=== PATIENT | male | born 1935 | race Caucasian/White ===

== ENCOUNTER 2016-06-17 10:32 | Inpatient (IN) | payer MEDICARE, MEDICAID ==
[~2016-06-17] VITALS: Ht 185.4 cm; Wt 110.6 kg
--- NOTE | ~2016-06-17 | ER ---
PATIENT'S NAME: LEONEL ALONSO [facility] AGE: 81 Y [address] ROOM: [address] [place], [place] [address] LOCATION: GPCU ADMIT DATE: 06/17/2016 ER/Outpatient Report DISCHARGE DATE: FAMILY PHYSICIAN: Bernabe Montero MD ATTENDING PHYSICIAN: DONALD CORONA V TIME OF ARRIVAL: 1032 hours. TIME OF EVALUATION: 1035 hours. CHIEF COMPLAINT: Not feeling well. HISTORY OF PRESENT ILLNESS: The patient is a 81-year-old male who presents to the emergency department today with a chief complaint of not feeling well. He reports that he has had a fever that developed this morning. He has had some lower abdominal pain as well. It all started about 3:00 a.m.. He is having a dry cough as well. Does report some nausea, vomiting, as well as some chills. Denies any diarrhea or constipation. The patient does report that he self caths. He did present to dialysis today; however, with the elevated temperature, they did not dialyze him. PAST MEDICAL HISTORY: End-stage renal disease, on hemodialysis Wednesday, Wednesday, and Wednesday; hypertension; atherosclerotic ischemic heart disease; coronary artery disease; obstructive sleep apnea, using CPAP; slg-dwbcecu-adxqeqdjm diabetes mellitus, type 2; tachy-jh syndrome; chronic renal failure; gastroesophageal reflex; benign prostatic hypertrophy; dyslipidemia; remote tobacco abuse; squamous cell cancer; sick sinus syndrome; anemia of chronic disease. PAST SURGICAL HISTORY: AV fistula placement in the left arm, cholecystectomy, pacemaker placement. SOCIAL HISTORY: The patient denies any tobacco use. Reports occasional alcohol use. Denies illicit drug use. ALLERGIES: NO KNOWN DRUG ALLERGIES. MEDICATIONS: Please see list. PATIENT'S NAME: LEONEL ALONSO [facility] AGE: 81 Y [address] ROOM: [address] [address] LOCATION: GPCU ADMIT DATE: 06/17/2016 ER/Outpatient Report DISCHARGE DATE: FAMILY PHYSICIAN: Bernabe Montero MD ATTENDING PHYSICIAN: DONALD CORONA V PRIMARY CARE DOCTOR: Bernabe Montero MD. REVIEW OF SYSTEMS: All systems are reviewed by myself and negative with the exception of those discussed in HPI and past medical history. PHYSICAL EXAMINATION: VITAL SIGNS: Weight 106 kg, blood pressure 186/93, pulse 113, respiratory rate 20, temperature 101.7, oxygen saturation 97% on room air. GENERAL: The patient is a 81-year-old male, appears his stated age, in no acute distress. HEENT: Head normocephalic atraumatic. Pupils are equal, round, and reactive to light and accommodation. Extraocular motions are intact. Nares are patent bilaterally. TMs are clear. Oropharynx is clear. NECK: Supple. There is no nuchal rigidity. CARDIOVASCULAR: Tachycardic. No murmurs, rubs, or gallops. LUNGS: Clear to auscultation bilaterally. No wheezes, rales, or rhonchi. ABDOMEN: Soft. Mild bilateral lower abdominal tenderness to palpation. He has no rebound, rigidity, or guarding. Positive bowel sounds. MUSCULOSKELETAL: The patient moves all 4 extremities. NEUROLOGICAL: GCS 15. Alert and oriented x4. SKIN: Warm and dry. LABS AND X-RAYS: Labs and x-rays are obtained. CBC: White blood cell count of 3.7, and platelets is 65, otherwise, unremarkable. Coags are unremarkable. EKG is obtained, interpreted by myself shows a paced rhythm with a rate of 111, normal axis, normal interval. Sgarbossa criteria are negative. Lactate is 2.1. CMP unremarkable except for BUN 40, creatinine 7.9, glucose 150. ALT is normal. Lipase is normal. CK-MB and CK are normal. Troponin 0.043. Procalcitonin is elevated at 0.59. Influenza A and B are negative. CT scan of the abdomen and pelvis is obtained. I discussed results with the radiologist. It does show atrophic kidneys with bilateral renal cyst. There is a small amount of free fluid within the right lower quadrant and pelvis. There is circumferential bladder wall thickening of uncertain etiology. He has scattered colon diverticula without evidence of diverticulitis. Urinalysis shows 25 leuk esterase, 100 protein, 25 blood, 10-20 wbc's and rbc's, otherwise unremarkable. IMPRESSION: 1. Complicated urinary tract infection with the self-catheterizations at home. 2. Sepsis due to #1. PATIENT'S NAME: LEONEL ALONSO [facility] AGE: 81 Y [address] ROOM: [place] [id number] [facility] ADMIT DATE: 06/17/2016 ER/Outpatient Report DISCHARGE DATE: FAMILY PHYSICIAN: Bernabe Montero MD ATTENDING PHYSICIAN: DONALD CORONA V 3. End-stage renal disease, on hemodialysis. 4. Thrombocytopenia, progressively down trending on labs. 5. Initial visit. EMERGENCY DEPARTMENT COURSE: The patient brought back to the examination room. Seen evaluated by myself. IV is established. Laboratory analysis and imaging are obtained as described above. The patient is given Tylenol orally. He is given Zosyn 2.25 g IV. The patient has not had his dialysis at this time. I will hold off on the fluids until evaluation by Nephrology. I did discuss the case with Dr. Montero. He has seen and evaluated the patient down here in the emergency department. I have also discussed the case with EMILY Torres. I have discussed the case with Dr. Corona with the Hospitalist Service. The patient will be admitted under the care of the Hospitalist Service in conjunction with Nephrology in stable condition. DO JYOTI DEE/katina /[id number] d: 06/17/16 1438 t: 06/19/16 0822, OUTPATIENT REPORT
--- NOTE | ~2016-06-17 | HP ---
PATIENT'S NAME: LEONEL ALONSO [facility] AGE: 81 Y [address] ROOM: [place] [address] LOCATION: GPCU ADMIT DATE: 06/17/2016 History & Physical DISCHARGE DATE: FAMILY PHYSICIAN: Bernabe Montero MD ATTENDING PHYSICIAN: DONALD CORONA V DATE OF SERVICE: CHIEF COMPLAINT: Fever. HISTORY OF PRESENT ILLNESS: The patient is a 81-year-old male with past medical history most significant for end-stage renal disease, on hemodialysis. The patient was feeling well until yesterday evening when he developed fatigue. Subsequently, the patient developed shaking chills and rigors this morning. He came to the ER and was found to have a fever of 101.7. Remainder of the workup in the ER was unremarkable, which included chest x-ray, CT of abdomen and pelvis, as well as labs. The patient does not endorse any chest pain, shortness of breath, productive cough, nausea, vomiting, or diarrhea associated with these symptoms. REVIEW OF SYSTEMS: All systems have been reviewed and negative aside from pertinent positives mentioned above. PAST MEDICAL HISTORY: Significant for; 1. Placement of an AICD. 2. 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 3. Essential hypertension. 4. Benign prostatic hyperplasia, requiring self catheterization. The patient is scheduled for a TURP in several weeks. 5. Diabetes. 6. Hypothyroidism. CURRENT MEDICATIONS: 1. Allopurinol. 2. Amlodipine. 3. Carvedilol. 4. Levothyroxine. The remainder of medications is being compiled. PATIENT'S NAME: LEONEL ALONSO [facility] AGE: 81 Y [address] ROOM: [place] [address] LOCATION: GPCU ADMIT DATE: 06/17/2016 History & Physical DISCHARGE DATE: FAMILY PHYSICIAN: Bernabe Montero MD ATTENDING PHYSICIAN: DONALD CORONA V SOCIAL HISTORY: Negative for any toxic habits. FAMILY HISTORY: Reviewed and is noncontributory due to the patient's advanced age and normal medical problems. PHYSICAL EXAMINATION: VITAL SIGNS: Upon my visit in dialysis; his blood pressure is 180/100, heart rate is 110s, temperature 101.7, respirations 16, and saturating 96% on room air. GENERAL: Appears as a well-developed, well-nourished, elderly overweight male, in no acute distress, on dialysis, eating sandwich. NEUROLOGIC: Nonfocal. EYES: Pupils are equal and reactive to light. LYMPHATIC: Shows no cervical lymphadenopathy. ENDOCRINE: Shows no thyromegaly. LUNGS: Clear to auscultation bilaterally. HEART: Heart rate is regular with no appreciable murmurs, gallops, or rubs. GI: Abdomen is soft, nontender, and nondistended. : Reveals no costovertebral angle tenderness. VASCULAR: Reveals 2+ pedal pulses and no lower extremity edema. MUSCULOSKELETAL: Reveals no muscle or joint abnormalities. SKIN: Warm and dry. PSYCHIATRIC: Reveals a pleasant elderly gentleman with appropriate mood, cognition, and affect. LABORATORY DATA: Studies performed in the ER significant for lactate of 2.1, glucose of 168, BUN of 40, and creatinine 7.9. Unremarkable set of cardiac enzymes. White count is 3.7, hemoglobin 11.7, and platelets are 65. 1% bands. Influenza screen is negative. Procalcitonin is 0.59. Urinalysis reveals 25 leukocyte, 100 of protein, and 50 of glucose. ASSESSMENT AND PLAN: 1. This is a 81-year-old male with febrile illness. He will be admitted for observation. Given his slightly low white count and absence of bands, I doubt that his infection is bacterial. Blood cultures have been drawn and he has received some antibiotics in the ER and we will monitor him for resolution of symptoms as well as further results of the blood cultures. I do not feel that he warrants antibiotics at this time. 2. End-stage renal disease. The patient has been started on his regular dialysis today. 3. Benign prostatic hyperplasia. We will continue him on his current Flomax and intermittent self catheterization. PATIENT'S NAME: LEONEL ALONSO [facility] AGE: 81 Y [address] ROOM: [place] [address] LOCATION: [facility] ADMIT DATE: 06/17/2016 History & Physical DISCHARGE DATE: FAMILY PHYSICIAN: Bernabe Montero MD ATTENDING PHYSICIAN: DONALD CORONA V 4. Essential hypertension. We will reassess his blood pressure after dialysis and treat acutely if needed. 5. Additional management will depend on clinical course. Time dedicated to this patient's encounter is 35 minutes. MD TED FREEMAN/katina /[id number] D: [id number] T: [id number] HISTORY & PHYSICAL
--- NOTE | ~2016-06-17 | CON ---
PATIENT'S NAME: LEONEL ALONSO [facility] AGE: 81 Y [address] ROOM: [place] [address] LOCATION: GPCU ADMIT DATE: 06/18/2016 Consultation DISCHARGE DATE: FAMILY PHYSICIAN: Bernabe Montero MD ATTENDING PHYSICIAN: DONALD CORONA V DATE OF CONSULTATION: 06/19/2016 REFERRING PHYSICIAN: ELIAS PRIETO HISTORY OF PRESENT ILLNESS: The patient is a 81-year-old male, admitted secondary to urinary tract infection with bacteremia. The patient has end-stage renal disease. He also has BPH and performs intermittent self catheterization. The patient has seen Dr. Perez and is scheduled for a UroLift procedure for his BPH. The patient is currently on IV antibiotic Zosyn, which I recommend continue to completion. Once his infection is cleared, the patient is to proceed with his planned UroLift procedure with Dr. Perez. PAST MEDICAL HISTORY: Significant for end-stage renal disease, hypertension, BPH, diabetes, hypothyroidism. PAST OPERATIONS: Include placement of an AICD. MEDICATIONS: On admission are: 1. Allopurinol. 2. Amlodipine. 3. Carvedilol. 4. Levothyroxine. SOCIAL HISTORY: The patient is a nonsmoker. No history of alcohol abuse. REVIEW OF SYSTEMS: Noncontributory. PHYSICAL EXAMINATION: GENERAL: An elderly male, in no acute distress. The patient is alert and oriented. EYES: Extraocular motion intact. LUNGS: Clear bilaterally. CARDIAC: Regular rhythm and rate. ABDOMEN: Obese, soft, and nontender. Normoactive bowel sounds throughout. PATIENT'S NAME: LEONEL ALONSO [facility] AGE: 81 Y [address] ROOM: [address] [address] LOCATION: GPCU ADMIT DATE: 06/18/2016 Consultation DISCHARGE DATE: FAMILY PHYSICIAN: Bernabe Montero MD ATTENDING PHYSICIAN: DONALD CORONA V NEURO: Grossly intact. SKIN: Within normal limits. IMPRESSION: Elderly male with: 1. Renal insufficiency. 2. Benign prostatic hyperplasia with obstruction. 3. Urinary tract infection. PLAN: Continue present care. The patient will proceed with UroLift procedure with Dr. Perez in the future. MD Salas VALENTIN /[id number] d: 06/20/16 0042 t: 07/06/16 1915, CONSULTATION REPORT
--- NOTE | ~2016-06-17 | DS ---
PATIENT'S NAME: LEONEL ALONSO [facility] AGE: 81 Y [address] ROOM: [address] [place], [place] [address] LOCATION: GPCU ADMIT DATE: 06/18/2016 Discharge Summary DISCHARGE DATE: 06/21/2016 FAMILY PHYSICIAN: Bernabe Montero MD ATTENDING PHYSICIAN: Mejia Clay V PRIMARY DIAGNOSES: 1. Sepsis, other acute diagnosis includes streptococcal bacteremia. 2. Catheter associated urinary tract infection. 3. Pancytopenia, chronic diseases include end-stage renal disease and essential hypertension. PRINCIPAL PROCEDURE: Done for the patient includes transesophageal echocardiogram by Dr. Taveras. LABORATORY DATA: On admission, WBC was 3.7, lowest level obtained was 2.2, prior to discharge was 3.1. H and H on admission were 11.7 and 34.7, prior to discharge was 10.4 and 30.5. Platelet on admission was 65, prior to discharge was 85. Sodium on admission was 137, was stable throughout the hospital stay. Creatinine was also stable throughout the hospital stay given the patient's end-stage renal disease. Bicarb was stable at 23, prior to discharge was 97. Chloride was 100. Potassium was 4.8 on admission, prior to discharge was 4.3. Liver function test was within normal limits. UA; leukocytes 25, nitrite negative, wbc's 10 to 20, blood 25, bacteria negative. Influenza test was negative. Procalcitonin was 0.59. Lipase 129. MICROBIOLOGY: Blood culture was positive for Streptococcus infantarius x2 sets. Urine culture was positive for Streptococcus anginosus greater than 100,000 colony-forming unit. Repeat blood culture remained no growth until discharge. RADIOLOGY: Chest x-ray is reported as cardiac silhouette, is accentuated by suboptimal inspiration, increased perihilar and basilar interstitial opacities are stable, and may represent interstitial edema/infiltrate versus superimposed chronic fibrotic change. CT of the abdomen and pelvis without contrast is reported as atrophic-appearing kidneys with bilateral renal cysts; nonvisualization of the gallbladder, which may be surgically absent; small amount of free fluid within the right lower quadrant and pelvis; circumferential bladder wall thickening of uncertain etiology; scattered colon diverticula with no definitive evidence of diverticulitis. ACACIA, negative for vegetation. HOSPITAL COURSE: For history of present illness, please take a look at the H and P, which was done by Dr. Clay. The patient was admitted to progressive care unit and was managed for sepsis, so the patient was started on Zosyn from PATIENT'S NAME: LEONEL ALONSO [facility] AGE: 81 Y [address] ROOM: [address] [place], [place] [address] LOCATION: GPCU ADMIT DATE: 06/18/2016 Discharge Summary DISCHARGE DATE: 06/21/2016 FAMILY PHYSICIAN: Bernabe Montero MD ATTENDING PHYSICIAN: Mejia Clay V the first day of the hospital stay, after which blood culture was Gram- positive, strep and urine culture as well was Gram-positive. Ultimately, the urine culture came back to be Streptococcus anginosus and blood culture was positive for Streptococcus infantarius, all of which were sensitive to penicillin. He was continued on Zosyn from the day of admit till the day of discharge, and he also did get a Renal consult and he was continued on his hemodialysis. Because of the fact that the patient has an AICD placed and because of concern or to rule out any vegetation on the leads, he did get a ACACIA done a day prior to discharge. Procedure was well tolerated by the patient without any intraoperative or postoperative complications. Throughout his hospital stay, he did not have any respiratory problems and vital signs were essentially stable throughout. So, on the day of discharge, though his blood pressure was elevated, however, this was not new for the patient. He did need to get some IV hydralazine prior to discharge and after that, vital signs were stable and he was discharged home. MEDICATIONS ON DISCHARGE: 1. Allopurinol 300 mg p.o. daily. 2. Norvasc 10 mg p.o. daily. 3. PhosLo 667 mg p.o. twice daily. 4. Coreg 3.125 mg p.o. daily. 5. Colchicine 1 tablet p.o. 2 times per week. 6. Flonase 50 mcg one spray to nose every day. 7. Glipizide 10 mg p.o. daily before breakfast. 8. Imdur 60 mg p.o. daily. 9. Synthroid 50 mcg p.o. daily before breakfast. 10. Lisinopril 20 mg q.h.s. 11. Magnesium oxide 400 mg p.o. twice daily. 12. Paxil 10 mg p.o. daily. 13. Pravastatin 10 mg p.o. q.h.s. 14. Renvela 800 mg p.o. 3 times daily. 15. Terazosin 10 mg p.o. q.h.s. 16. Ocuvite 1 tablet p.o. twice daily. 17. Tylenol Extra Strength 1 gram p.o. q.6 hours p.r.n. 18. Bacitracin topical to affected area. 19. Ibuprofen 400 mg p.o. every 6 hours p.r.n. 20. Keisha 180 mg p.o. daily p.r.n. 21. Advair 250/50 Diskus one puff every day p.r.n. 22. Ampicillin 500 mg b.i.d. renally dosed p.o. for an additional of 6 days. DISCHARGE INSTRUCTIONS: The patient is to continue on p.o. antibiotics for an additional 6 days to july get a total of about 10 days of antibiotics and the patient has been scheduled for a urology procedure for July 02. This has been done prior to the admit and he was directed to start antibiotics 1 week before the date. After the patient completes the ampicillin, he is to start PATIENT'S NAME: LEONEL ALONSO [facility] AGE: 81 Y [address] ROOM: [place] [address] [facility] ADMIT DATE: 06/18/2016 Discharge Summary DISCHARGE DATE: 06/21/2016 FAMILY PHYSICIAN: Bernabe Montero MD ATTENDING PHYSICIAN: Mejia Clay V the antibiotics which has been placed on by the urologist prior to the procedure. MD MAGNO OLMEDO/katina /[id number] d: 06/21/160 t: 07/01/16 1724, DISCHARGE SUMMARY
--- NOTE | ~2016-06-17 | ECHO ---
Transesophageal Echocardiography Report (ACACIA) Demographics Patient Name LEONEL ALONSO Date of Study 06/20/2016 Patient Number [id number] Visit Number [id number] Date of 1935 Room Number [address] Gender Male Number Age 81 year(s) Referring Crystal Sim Vice President Media Relations Casey Randle [facility] Physician Physician Interpreting Crystal Sim Security Associate Physician MD Supervising Ordering Crystal Sim MD/MLP Physician MD Nurse Stress Ceramic Tile Installation Helper Conclusions Summary Normal left/ right ventricular size and function. The right atrium is normal in size. Device lead seen in the right atrium/right ventricle. No masses noted on device lead, significant reverberation artifact, can not rule out small vegetation. MV is grossly normal. Mild MR. No evidence of any valvular vegetations Trileaflet AV witih mild AV sclerosis. No AI. No evidence of any valvular vegetations TV is not very well seen, however no obvious valvular vegetations. Mild TR. PV is grossly normal. No evidence of any valvular vegetations Procedure Type of Study ACACIA procedure:ACACIA with Color. Procedure Date Date: 06/20/2016 Start: 08:46 AM Study Location: Inpatient Portable Indications:Endocarditis. Additional Indications:Sepsis Patient Status: Routine Rhythm: Within normal limits HR: 72 bpm BP: 176/87 mmHg Findings Left Ventricle Normal left ventricular size and function Right Ventricle Normal right ventricular size and function. Left Atrium There is no thrombus in the left atrial appendage. No left atrial appendage mass. There is no evidence of patent foramen ovale or atrial septal defect by color Doppler. Right Atrium The right atrium is normal in size. Device lead seen in the right atrium. No masses noted on device lead, significant reverberation artifact, can not rule out small vegetation. Mitral Valve MV is grossly normal. Mild MR. No evidence of any valvular vegetations. Aortic Valve Trileaflet AV witih mild AV sclerosis. No AI. No evidence of any valvular vegetations Tricuspid Valve TV is not very well seen, however no obvious valvular vegetations. Mild TR. Pulmonic Valve PV is grossly normal. No evidence of any valvular vegetations Miscellaneous The patient was brought to the PACU in the fasting state after informed consent was obtained in the written and verbal format. Bite block was placed by nd. Once adequate anesthesia was obtained with anesthesia guidance with propofol sedation the ACACIA probe was placed by me down into the esophagus. At the end of the case the probe was rotated and withdrawn. Patient tolerated the procedure well. Minimal thoracic aorta plaque. Signature dtt: TOM BARCENAS dtd: 06/20/16 0846 Physician Self Edit
--- NOTE | ~2016-06-17 | CON ---
PATIENT'S NAME: LEONEL ALONSO [facility] AGE: 81 Y [address] ROOM: [id number] [place], [place] [id number] LOCATION: GPCU ADMIT DATE: 06/17/2016 Consultation DISCHARGE DATE: FAMILY PHYSICIAN: Bernabe Montero MD ATTENDING PHYSICIAN: DONALD CORONA V DATE OF CONSULTATION: 06/17/2016 REFERRING PHYSICIAN: ELIAS MORFIN This is a [facility] nephrology consultation. REASON FOR CONSULTATION: End-stage renal disease, need for hemodialysis therapy. HISTORY OF PRESENT ILLNESS: This is a 81-year-old male patient who is well known to me in Nephrology, who presents to the emergency room complaining of generalized fever and malaise x2 days. The patient did have regularly scheduled hemodialysis on Wednesday at [facility]. He does report that he woke up feeling poorly and not himself on Wednesday morning. He has proceeded to feel ill and presented to the emergency room this morning prior to his regularly scheduled outpatient dialysis appointment. The patient did report of fever at that time. He was also noted to have urinalysis concerning for UTI. Due to the patient's generalized malaise as well as fatigue, fever, and positive UA, the patient was admitted. Therefore, Nephrology has been asked to consult on the patient to manage his inpatient hemodialysis care. He is due for his hemodialysis today. He does have a primary left radiocephalic AV fistula placed. The patient does have also a longstanding history of type 2 non- insulin-dependent diabetes mellitus as well as longstanding hypertension. He does have a history of pacemaker implantation as well as gouty arthritis. The patient has a history of GERD as well as BPH with upcoming prostatic surgery with Urology on 07/02/2016. He does continue to make some urine daily, but it is recommended to self-catheterize to obtain this. He does have a history of dyslipidemia. 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 PAST MEDICAL HISTORY: As listed above including, 1. End-stage renal disease, on hemodialysis. 2. Hypertension. 3. Chronic back pain. 4. Dyslipidemia. 5. History of oxalate nephropathy. 6. Gout. 7. History of BPH. 8. Type 2 vwj-melcead-fntpcvhfj diabetes. 9. Sick sinus syndrome, status post pacemaker implantation in 2010. PAST SURGICAL HISTORY: As listed above including, 1. Pacemaker implant in 2010. 2. Cholecystectomy. 3. AV fistula placement in his left forearm. SOCIAL HISTORY: The patient does live at home alone. He is a former smoker. Did not use any alcohol or illicit drug use. FAMILY HISTORY: Noncontributory. There is no history of renal disease or dialysis. ALLERGIES: NONE TO MEDICATION.PATIENT'S NAME: LEONEL ALONSO [facility] AGE: 81 Y [address] ROOM: [id number] [place] [id number] LOCATION: [facility] ADMIT DATE: 06/17/2016 Consultation DISCHARGE DATE: FAMILY PHYSICIAN: Bernabe Montero MD ATTENDING PHYSICIAN: DONALD CORONA V CURRENT HOME MEDICATIONS: (These are obtained from [facility]) 1. Keisha 180 mg daily. 2. Allopurinol 300 mg one tablet twice a day. 3. Amlodipine 10 mg daily. 4. Coreg 12.5 mg one tablet twice a day. 5. Colchicine 0.6 mg one tab a week. 6. Finasteride 5 mg one tablet daily. 7. Flonase 50 mcg nasally one puff twice a day. 8. Glipizide 10 mg daily. 9. Ibuprofen 400 mg one tablet every 6 hours as needed for pain and fever. 10. Imdur 60 mg one tablet daily. 11. Levothyroxine 50 mcg one tablet daily. 12. Lisinopril 20 mg one tablet daily at bedtime. 13. Magnesium oxide 400 mg twice a day. 14. Ocuvite 150/30/5/150 mg 1 tablet daily. 15. Omeprazole 20 mg daily. 16. Paxil 10 mg daily. 17. Calcium acetate 2 tablets three times a day with food. 18. Renvela 800 mg 1 tablet three times a day with food. 19. Pravastatin 10 mg daily. 20. Terazosin 5 mg 2 tablets daily. REVIEW OF SYSTEMS: GENERAL: Complains of fatigue. EYES: No double vision or blurred vision. NOSE: No epistaxis or rhinorrhea. MOUTH: No gingival bleeding. THROAT: No sore throat, hoarseness, or cough. RESPIRATORY: Denies wheezing or hemoptysis. CARDIOVASCULAR: No chest pain or palpitations. No dizziness or presyncope. No syncope. GASTROINTESTINAL: Denies any nausea, vomiting, or diarrhea. GENITOURINARY: He does continue to make some urine despite hemodialysis. He does self-catheterize. MUSCULOSKELETAL: He denies arthralgias or myalgias that are new. He does have a history of chronic back pain in which he does seek social worker palliative care for every other week. NEUROLOGICAL: Denies any new numbness or tingling in the upper or lower extremities. Denies any balance or gait disturbances. He does ambulate at times with a cane. HEMATOLOGICAL: Denies bruising or easy bleeding. IMMUNOLOGICAL: Denies any history of recent infections. He was recently treated with Tamiflu for exposure to influenza A. LABORATORY STUDIES: CBC shows WBCs of 3.7, platelets 65. EKG is obtained with a paced rhythm at a rate of 111 beats per minute, unable to assess any acute ST-T wave abnormalities due to pacemaker. Lactate is 2.1. CMP is unremarkable short of BUN is 40, creatinine 7.9, glucose is 150. ALT is normal. Lipase is normal. CK and CK-MB are normal. Troponin is 0.043. Procalcitonin is elevated at 0.59. Influenza A and B are negative. CT scan of the abdomen and pelvis is obtained that is showing bilateral atrophic kidneys with a renal cyst. There is a small amount of free fluid within the right lower quadrant and pelvis. There is circumferential bowel wall thickening of uncertain etiology. There are scattered colon diverticula without evidence of diverticulitis. Urinalysis shows 25 leukocyte esterase, 100 protein, 25 blood, 10 to 20 wbc's and rbc's, otherwise, unremarkable.PATIENT'S NAME: LEONEL ALONSO [facility] AGE: 81 Y [address] ROOM: [id number] [place] [id number] LOCATION: GPCU ADMIT DATE: 06/17/2016 Consultation DISCHARGE DATE: FAMILY PHYSICIAN: Bernabe Montero MD ATTENDING PHYSICIAN: DONALD CORONA V PHYSICAL EXAMINATION: VITAL SIGNS: Blood pressure 186/93, pulse 113, respiratory rate is 20, temperature is 101.7, sats 97% on room air. GENERAL: On exam, this is an alert and oriented, white elderly male who appears his approximate stated age, in no acute distress. HEENT: Head is normocephalic, atraumatic. Eyes; pupils are equal, round, and reactive to light and accommodation. EOMs are intact. Nose is clear and patent. LUNGS: Lung sounds are clear to auscultation anterior and posteriorly. Breaths are nonlabored. CARDIOVASCULAR: Regular rate and rhythm. Slightly tachycardic. Unable to appreciate any murmurs, rubs, or thrills. NECK: Soft and supple. ABDOMEN: Soft, nontender, and nondistended. Bowel sounds are positive. EXTREMITIES: Show no signs of peripheral edema, clubbing, or cyanosis. NEUROLOGIC: Cranial nerves 2 through 12 are grossly intact. SKIN: Warm and dry. ASSESSMENT AND PLAN: 1. End-stage renal disease, requiring hemodialysis therapy. The patient is due for his outpatient hemodialysis at this time. We will obtain outpatient clinical record and provide hemodialysis accordingly. We will place the patient at a minimum and with no ultrafiltration today due to the patient's fever as well as infection. 2. Sepsis secondary to Complicated urinary tract infection: self-catheterizations at home. Patient has been started on Zosyn at this time. 3. History of benign prostatic hypertrophy with upcoming plans for prostate procedure with Urology. This is on 07/02/2016. Further recommendations will be forthcoming. 4. Thrombocytopenia. Per hospitalist. 5. Hyperphosphatemia. The patient is to continue his Renvela and PhosLo with food. This patient has been seen and assessed by Dr. Morfin. His care is being conducted in consultation with Dr. Morfin as well as me. We will plan further recommendations as they are forthcoming. DILMA LING DNP, BILLING ADJUDICATOR FOR MD AGNIESZKA DYER/modl /[id number] d: 06/17/16 2351 t: 06/25/16 1405, CONSULTATION REPORT
[~2016-06-17 10:32] MED LIST: ALLEGRA ALLERG180 MG PO; ALLOPURINOL300 MG PO; AMLODIPINE BESY10 MG PO; COLCHICINE0.6 MG PO; COREG 3.1253.125 MG PO; FINASTERIDE5 MG PO; GLUCOTROL10 MG PO; HYTRIN UD5 MG PO; IMDUR60 MG PO; LEVOTHROID (SY50 MCG PO; MAG-OX-400(241400 MG PO; PAXIL10 MG PO; PRAVASTATIN SOD10 MG PO; PRILOSEC20 MG PO; PRINIVIL (ZESTR20 MG PO; RENVELA800 MG PO; SYMBICORT 16010.2 GM INH
[2016-06-17 11:00] LABS: HEMATOCRIT 34.7 % (37.0-53.0); HEMOGLOBIN 11.7 g/dL (11.0-16.0); MCH 34.9 pg (27.0-34.0); MCHC 33.7 gm/dL (32.0-36.5); MCV 103.6 fl (83.0-98.0); MPV 9.5 fl (9.4-12.4); PLATELET COUNT 65 K/uL (150-450); RBC 3.35 M/uL (3.50-5.50); RDW-CV 14.7 % (11.9-14.6); WBC 3.7 K/uL (4.0-11.0)
[2016-06-17 11:26] LABS: INR - (THERAPEUTIC) 1.1 (0.9-1.1); PROTIME 11.5 SECONDS (9.6-11.1); PTT 24 SECONDS (25-32)
[2016-06-17 11:30] LABS: ALBUMIN 3.7 gm/dL (3.5-5.0); ANION GAP 18.8 (10.0-19.0); CALCIUM 7.9 mg/dL (8.5-10.5); POTASSIUM 4.8 mMol/L (3.7-5.1); TOTAL BILIRUBIN 0.8 mg/dL (0.0-1.5); TOTAL PROTEIN 6.9 g/dL (6.0-8.4)
[2016-06-17 11:32] LABS: CREATININE 7.9 mg/dL (0.6-1.3)
[2016-06-17 12:06] LABS: BILIRUBIN URINE NEGATIVE (NEGATIVE); BLOOD URINE 25 /UL (NEGATIVE); COLOR URINE YELLOW (YELLOW); GLUCOSE URINE 50 mg/dL (NEGATIVE); KETONE URINE NEGATIVE (NEGATIVE); LEUKOCYTES URINE 25 /UL (NEGATIVE); NITRITE URINE NEGATIVE (NEGATIVE); PROTEIN URINE 100 mg/dL (NEGATIVE); SPEC GRAVITY URINE 1.015 (1.003-1.035); TURBIDITY URINE CLEAR (CLEAR); UROBILINOGEN URINE NORMAL (NORMAL)
[2016-06-17 12:11] LABS: ABSOLUTE NEUTROPHIL CT (ANC) 3.3 K/uL (1.4-9.0); BANDED NEUTROPHILS % 1 %; LYMPHOCYTE # 0.2 K/uL (0.8-4.0); LYMPHOCYTE % 5 %; MONOCYTE # 0.2 K/uL (0.0-1.0); SEGMENTED NEUTROPHIL # 3.3 K/uL (1.4-9.0); SEGMENTED NEUTROPHIL % 89 %
[2016-06-17 12:12] LABS: BACTERIA URINE NEGATIVE (NEGATIVE); EPITHELIAL URINE NEGATIVE #/HPF (NEGATIVE)
--- NOTE | 2016-06-17 14:41 | NUR ---
PT is 81 y/o male admit for sepsis/complicated UTI for hospitalist. No allergies. Resides at home with his daughter and grandkids. Hx pacemaker, CKD,dialysis,htn,hypercholest,urinary retention-self caths QID,gerd,gout, DM type 2,depression,COPD,SOB,arthritis. States he felt very tired and fatigued yesterday. This am he felt chilled and was shaking along with nausea but no vomiting. Went to [facility] this am for dialysis and had a fever of 102. He was sent to ED. PT in dialysis during admission. Report given to EMMA Foster pt's primary care nurse.
[2016-06-17] MEDS ORDERED: PHOSLO667 MG PO (16:32)
[2016-06-17] MEDS ORDERED: FLONASE 50 MCG/16 GM NOSE (16:33)
[2016-06-17] MEDS ORDERED: ADVAIR 250-501 EACH INH (16:33)
[2016-06-17] MEDS ORDERED: OCUVITE EYE +1 EACH PO (16:34)
[2016-06-17] MEDS ORDERED: ADVIL200 MG PO (16:34)
[2016-06-17] MEDS ORDERED: TYLENOL EXTRA500 MG PO (16:34)
--- NOTE | 2016-06-18 04:25 | NUR ---
Significant Event: Patient A/Ox3. VSS on RA. HR 80s-90s. SBP 130s-170s. Patient does wear home cpap at night with no oxygen bled into it. Patient has had low grade fevers all night. Highest temp was 100.4 Tylenol given x1 around 1999 for back pain. Patient continues to have abdominal pain, but thinks it's because he hasn't eaten much of anything over the past day or so. He does appear to be somewhat bloated. Voids per straight cath (self) patient does not have any of his own caths here, so he is using ours. Blood culture positive for gram + cocci in chains. Patient started on Zosyn. Dialysis MWF. L) arm fistula. Follow up: Continue plan of care
[2016-06-18 04:31] LABS: ALBUMIN 3.4 gm/dL (3.5-5.0); ANION GAP 16.5 (10.0-19.0); PHOSPHORUS 3.5 mg/dL (2.5-4.9); POTASSIUM 4.5 mMol/L (3.7-5.1)
[2016-06-18 04:33] LABS: CREATININE 5.5 mg/dL (0.6-1.3)
--- NOTE | 2016-06-18 12:48 | NUR ---
Introduced self and role of care management to patient. He lives in [place] by himself. He states that he is able to do all his ADL's independently. He states that he drives himself to dialysis 3 days a week. He does have a daughter that live 10 blocks from him that assists as needed. He plans on returning home on discharge. He denies any needs at this time. Will continue to follow.
--- NOTE | 2016-06-18 17:03 | NUR ---
Significant Event: A/O x3, cooperative with cares. VSS, SBPs 150s, HRs 70-80s, on room air. Tylenol given at 0716 et Ibuprofen at 1207 for c/o back pain; relief noted. Patient reports not needing to straight cath himself this shift. Urology consult; Dr. Xiong notified. Up with SBA. Follow up: ? dialysis in AM, ? time
[2016-06-19 03:28] LABS: HEMATOCRIT 29.3 % (37.0-53.0); MCH 35.5 pg (27.0-34.0); MCHC 34.1 gm/dL (32.0-36.5); MCV 103.9 fl (83.0-98.0); MPV 9.7 fl (9.4-12.4); RBC 2.82 M/uL (3.50-5.50); RDW-CV 14.4 % (11.9-14.6); WBC 2.2 K/uL (4.0-11.0)
[2016-06-19 03:34] LABS: PLATELET COUNT 54 K/uL (150-450)
[2016-06-19 03:42] LABS: ANION GAP 15.4 (10.0-19.0); CALCIUM 7.5 mg/dL (8.5-10.5); POTASSIUM 4.4 mMol/L (3.7-5.1)
[2016-06-19 03:44] LABS: CREATININE 7.2 mg/dL (0.6-1.3); MAGNESIUM 2.7 mg/dL (1.3-2.6)
--- NOTE | 2016-06-19 04:34 | NUR ---
Significant Event: Patient A/Ox3. VSS on RA. Self cath x2 for voids. Up standby assist. Zosyn x1. Ibuprofen x1 for back pain. patient noted relief. Follow up: Continue plan of care. Dialysis today?
[2016-06-19 05:04] LABS: ABSOLUTE NEUTROPHIL CT (ANC) 1.6 K/uL (1.4-9.0); BANDED NEUTROPHIL # 0.8 K/uL (0.0-0.1); BANDED NEUTROPHILS % 35 %; LYMPHOCYTE # 0.4 K/uL (0.8-4.0); LYMPHOCYTE % 19 %; SEGMENTED NEUTROPHIL # 0.9 K/uL (1.4-9.0); SEGMENTED NEUTROPHIL % 39 %
--- NOTE | 2016-06-19 17:14 | NUR ---
Significant Event: A/O x3, cooperative with cares. VSS, SBPs 150-170s, HRs 80s, on room air. Ibuprofen given x2, last at approximately 1645, for c/o back pain; relief noted. Dialysis today; 3.2 liters removed today. Straight cath x1 today per patient. Plan for [facility] in AM with Dr. Taveras; unsure of time. Up with SBA Follow up: NPO after midnight; [facility] in AM
--- NOTE | 2016-06-20 04:32 | NUR ---
Pt ao x4. vss on ra, afebrile. con't to be slightly hypertensive highest sbp 160's. paced. NPO. RH iv SL. SBA. no output this shift. IBP given at 2230 for intermittent low back pain. Bacitracin applied to 4th r toe.Con't on iv abx Plan: [facility]
[2016-06-20 06:13] LABS: BASOPHIL % 0.8 %; EOSINOPHIL % 1.6 %; HEMOGLOBIN 10.6 g/dL (11.0-16.0); IMMATURE GRANULOCYTE % 0.8 %; LYMPHOCYTE # 0.7 K/uL (0.8-4.0); LYMPHOCYTE % 30.1 %; MCH 35.1 pg (27.0-34.0); MCHC 34.2 gm/dL (32.0-36.5); MCV 102.6 fl (83.0-98.0); MONOCYTE # 0.3 K/uL (0.0-1.0); MONOCYTE % 13.8 %; MPV 10.4 fl (9.4-12.4); NEUTROPHIL # (ANC) 1.3 K/uL (1.4-9.0); NEUTROPHIL % 52.9 %; NRBC % 0 /100WBC (0-0.00); RBC 3.02 M/uL (3.50-5.50); RDW-CV 14.5 % (11.9-14.6); WBC 2.5 K/uL (4.0-11.0)
[2016-06-20 06:15] LABS: PLATELET COUNT 68 K/uL (150-450)
[2016-06-20 06:26] LABS: ANION GAP 16.3 (10.0-19.0); CALCIUM 7.7 mg/dL (8.5-10.5); POTASSIUM 4.3 mMol/L (3.7-5.1)
[2016-06-20 06:27] LABS: CREATININE 5.2 mg/dL (0.6-1.3)
--- NOTE | 2016-06-20 14:02 | NUR ---
Pt declined PT evaluation x 2 this PM, "I'm walking fine". Will check on again 06/21. Rodrigo Landers PT
--- NOTE | 2016-06-20 17:03 | NUR ---
Significant Event: A/O x3, cooperative with cares. VSS, SBPs 150-190s, HRs 70-80s, on room air. Ibuprofen given x1 this am for c/o back pain; relief noted. ACACIA today, negative. Refused to do PT consult. Up in room ad melanie to bathroom; straight cath self. Follow up: possible d/c tomorrow
[2016-06-21 04:25] LABS: BASOPHIL % 0.6 %; EOSINOPHIL # 0.1 K/uL (0.0-0.5); EOSINOPHIL % 2.3 %; HEMATOCRIT 30.5 % (37.0-53.0); HEMOGLOBIN 10.4 g/dL (11.0-16.0); IMMATURE GRANULOCYTE % 0.6 %; LYMPHOCYTE # 1.1 K/uL (0.8-4.0); MCH 34.8 pg (27.0-34.0); MCHC 34.1 gm/dL (32.0-36.5); MONOCYTE # 0.3 K/uL (0.0-1.0); MONOCYTE % 8.7 %; MPV 10.2 fl (9.4-12.4); NEUTROPHIL # (ANC) 1.6 K/uL (1.4-9.0); NEUTROPHIL % 52.8 %; NRBC % 0 /100WBC (0-0.00); RBC 2.99 M/uL (3.50-5.50); RDW-CV 14.2 % (11.9-14.6); WBC 3.1 K/uL (4.0-11.0)
[2016-06-21 04:28] LABS: PLATELET COUNT 85 K/uL (150-450)
--- NOTE | 2016-06-21 04:48 | NUR ---
a/o x4. SBP 180's all noc. was waiting for hs po meds to kick in and never did. ended up giving 10mg ivp hydralizine at 0315. current pressures 160-170's. has hydralizine prn for sbp >160 5mg, and >170 10mg, both q2 hr prn. may need another dose at roughly 530. ibp given at hs for chronic back pain. straight cath'd self 1x. iv zosyn given. plan: ? dc home today
[2016-06-21] MEDS ORDERED: BACITRACIN1 PKT TOP (12:37)
[2016-06-21] MEDS ORDERED: AMPICILLIN TRI500 MG PO (12:39)
--- NOTE | 2016-06-21 14:05 | NUR ---
Significant Event: A/O x3, cooperative with cares. VSS, SBPs 170-190s, doctor aware, HRs 70s, on room air. Ibuprofen given at 0739 for c/o back pain, relief noted. Up in room to bathroom ad melanie. Dismissal instructions given to patient et family, verbalized understanding. Dismissed to front lobby per w/c accompanied by nursing informatics analyst. Follow up:
[2016-06-23 15:45] LABS: COMMENT See Comments (()); INTERPRETATION Negative (Negative)
[2016-11-04] MEDS ORDERED: CPAP INH (08:41)
== END 2016-06-21 13:15 | disposition disaster alternative care site (69) | DRG 698 ==
LOC: GMED 10:32 → GPCU 13:41
PROVIDERS: Emergency Medicine; Hospitalist; Internal Medicine; Internal Medicine Interventional Cardiology; Nurse Practitioner; ADMIT Internal Medicine
PROC: 5A1D60Z (ICD-10-PCS; principal; 2016-06-17)
PROC: B24BZZ4 Ultrasonography of Heart with Aorta, Transesophageal (ICD-10-PCS; 2016-06-20)
DX: T83.511A Infection and inflammatory reaction due to indwelling urethral catheter, initial encounter (principal); N18.6 End stage renal disease; D61.818 Other pancytopenia; I12.0 Hypertensive chronic kidney disease with stage 5 chronic kidney disease or end stage renal disease; N05.9 Unspecified nephritic syndrome with unspecified morphologic changes; A40.8 Other streptococcal sepsis; N13.8 Other obstructive and reflux uropathy; Z95.810 Presence of automatic (implantable) cardiac defibrillator; E11.22 Type 2 diabetes mellitus with diabetic chronic kidney disease; E03.9 Hypothyroidism, unspecified; K21.9 Gastro-esophageal reflux disease without esophagitis; E78.5 Hyperlipidemia, unspecified; M10.9 Gout, unspecified; E83.39 Other disorders of phosphorus metabolism; N40.1 Benign prostatic hyperplasia with lower urinary tract symptoms
CPT/HCPCS: G0378; J0360; J1644; J2543; J7030; J7050; P9047; Q4081

== ENCOUNTER 2016-10-12 04:29 | Inpatient (IN) | payer MEDICARE, MEDICAID ==
[~2016-10-12] VITALS: Ht 185.4 cm; Wt 107.9 kg
--- NOTE | ~2016-10-12 | HP ---
PATIENT'S NAME: LEONEL ALONSO [facility] AGE: 81 Y [address] ROOM: [place] [address] LOCATION: GICU ADMIT DATE: 10/12/2016 History & Physical DISCHARGE DATE: FAMILY PHYSICIAN: PHYSICIAN, UNKNOWN ATTENDING PHYSICIAN: DONALD CORONA V DATE OF SERVICE: CHIEF COMPLAINT: Shortness of breath. HISTORY OF PRESENT ILLNESS: The patient is a 81-year-old male with past medical history most significant for end-stage renal disease, on hemodialysis Mondays, Wednesdays, and Fridays, in addition to remainder of past medical history. The patient came to the ER this morning with complaints of worsening dyspnea. He denies any fevers, chills, nausea, vomiting, diarrhea, chest pain, or palpitations associated with his presentation. The patient apparently was seen by his hogshead stripper, Dr. Morfin, this past Wednesday and was doing okay. While he endorses compliance with his diet, his family member was at bedside. He reports that he eats lot of processed foods and really does not follow his diet. In the ER, the patient was found to be hypoxic and quite labored. He was also hypertensive, systolic 220. He improved with BiPAP and nitroglycerin, but still quite hypertensive. REVIEW OF SYSTEMS: All systems have been reviewed and are negative aside from pertinent positives mentioned above. 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 At present, the patient is undergoing urologic workup to possibly address his urologic problems. Elz-jnmegjr-gcusbjtcd diabetes, hypothyroidism, and recent hospitalization for gram-positive bacteremia/sepsis. Questionable history of asthma. SOCIAL HISTORY: Negative for any history of ongoing toxic habits. CURRENT MEDICATIONS: PATIENT'S NAME: LEONEL ALONSO [facility] AGE: 81 Y [address] ROOM: [place] [address] LOCATION: GICU ADMIT DATE: 10/12/2016 History & Physical DISCHARGE DATE: FAMILY PHYSICIAN: PHYSICIAN, UNKNOWN ATTENDING PHYSICIAN: DONALD CORONA V Allopurinol, Norvasc, PhosLo, Coreg, colchicine, Flonase, glipizide, Imdur, Synthroid, lisinopril, magnesium oxide, Paxil, pravastatin, Renvela, terazosin, Ocuvite, Tylenol, ibuprofen, Keisha, Advair, and ampicillin. FAMILY HISTORY: Reviewed and noncontributory due to advanced age and multiple medical problems. PHYSICAL EXAMINATION: VITAL SIGNS: At this point, his blood pressure is 200/86, heart rate 89, and saturating 98% on BiPAP. He is afebrile. Respirations are high 20s and low 30s. GENERAL APPEARANCE: This is a morbidly obese, elderly male, in mild to moderate distress, but able to complete full sentences on BiPAP. NEUROLOGIC EXAM: Nonfocal. EYE EXAM: Pupils are equal and reactive to light. LYMPHATIC EXAM: No cervical lymphadenopathy. ENDOCRINE EXAM: No thyromegaly. LUNG EXAM: Significant for crackles at both bases approximately one-third way up bilaterally. HEART EXAM: Regular rate and rhythm. ABDOMEN: Soft, nontender, and nondistended. : No costovertebral angle tenderness. VASCULAR EXAM: 2+ pedal pulses with 1+ pitting bilateral lower extremity edema. SKIN: Warm and dry. PSYCHIATRIC EXAM: Appropriate mood, cognition, and affect. LABORATORY DATA: Lab results drawn in the ER at this point, consist of ABG showing pH of 7.45, pCO2 of 40, PO2 of 71, and bicarb of 28 on 10 L non-rebreather. His basic metabolic profile is still pending. CBC appears grossly unremarkable. Chest x-ray shows pulmonary edema/congestion. EKG is ventricularly paced. ASSESSMENT AND PLAN: This is a 81-year-old male, who will be admitted with: 1. Acute hypoxic respiratory failure due to volume overload. We will continue the patient on BiPAP for the time being. We will try and maintain his saturations over 90%. 2. Volume overload. We will have to control the patient's accelerated hypertension with nitroglycerin. I have ordered for him to receive a 120 mg of Lasix to help unload some of the fluids. I have discussed the case with Dr. Yeung and the patient will undergo emergent dialysis soon. 3. Questionable acute congestive heart failure. We will get a 2-dimensional echocardiogram to see if there might be a cardiac reason for his volume PATIENT'S NAME: GAVIN LEONEL J [facility] AGE: 81 Y [address] ROOM: [id number] [place], [place] [address] LOCATION: [facility] ADMIT DATE: 10/12/2016 History & Physical DISCHARGE DATE: FAMILY PHYSICIAN: PHYSICIAN, UNKNOWN ATTENDING PHYSICIAN: DONALD CORONA. 4. Itp-mgzpdcz-giskwzryp diabetes. We will monitor the patient's Accu- Cheks. 5. Uropathy. At this point, the patient is undergoing outpatient workup. 6. Deep venous thrombosis prophylaxis will be pharmacologic. 7. Additional management will depend on clinical course. Time dedicated for this patient's encounter is 35 minutes. MD TED FREEMAN/katina /[id number] D: [id number] T: [id number] HISTORY & PHYSICAL
--- NOTE | ~2016-10-12 | CON ---
PATIENT'S NAME: LEONEL ALONSO [facility] AGE: 81 Y [address] ROOM: [place] [address] LOCATION: GICU ADMIT DATE: 10/12/2016 Consultation DISCHARGE DATE: FAMILY PHYSICIAN: PHYSICIAN, UNKNOWN ATTENDING PHYSICIAN: DONALD CORONA V This is a [facility] Nephrology consultation. REASON FOR CONSULTATION: End-stage renal disease, need for hemodialysis, fluid overload. HISTORY OF PRESENT ILLNESS: This is a 81-year-old male patient, who has a longstanding history of end- stage renal disease secondary to type 2 nfm-onkiush-yjwdwzvxk diabetes as well as hypertension. 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 The patient did present to the emergency room complaining of shortness of breath. He was noted to be in fluid volume overload. He is scheduled for outpatient hemodialysis today, and he is regularly scheduled on Wednesday, Wednesdays and Fridays. The patient denies any other complaints of fever, chills, nausea, vomiting, diarrhea, chest pain, or palpitations. Due to the patient's history of end-stage renal disease, on hemodialysis, with fluid overload, Dr. Morfin has been asked to consult on the patient for his impending hemodialysis. PAST MEDICAL HISTORY: As listed above includin. End-stage renal disease, on hemodialysis. 2. Type 2 diabetes. 3. Oxalate nephropathy. 4. Hypertension. 5. Chronic back pain. 6. Dyslipidemia. 7. Gout. 8. History of BPH. 9. Sick sinus syndrome, status post AICD implantation in 2010. PAST SURGICAL HISTORY: 1. Pacemaker implant. 2. Cholecystectomy. 3. AV fistula placement in his left forearm. SOCIAL HISTORY: The patient does live at home alone. He is a former smoker. He does not currently smoke. He denies any illicit drug use or alcohol use. FAMILY HISTORY: Noncontributory. There is no history of renal disease or dialysis.PATIENT'S NAME: LEONEL ALONSO [facility] AGE: 81 Y [address] ROOM: [place] [address] LOCATION: [facility] ADMIT DATE: 10/12/2016 Consultation DISCHARGE DATE: FAMILY PHYSICIAN: PHYSICIAN, UNKNOWN ATTENDING PHYSICIAN: DONALD CORONA V CURRENT MEDICATIONS: 1. Tylenol 1000 mg p.o. q.6 hours p.r.n. pain. 2. Allopurinol 300 mg daily. 3. Amlodipine 10 mg daily. 4. Amoxicillin 500 mg 3 times a day starting 10/01/2016. 5. Calcium acetate 667 mg p.o. b.i.d. with food. 6. Carvedilol 3.125 mg daily. 7. Colchicine 0.6 mg 2 days a week on Wednesday and Wednesday. 8. Fexofenadine 120 mg p.r.n. allergies. 9. Fluticasone one spray each nostril daily and one puff inhalation daily 10. Glipizide 10 mg daily. 11. Ibuprofen 400 mg every 6 hours p.r.n. pain and fever. 12. Imdur 60 mg daily. 13. Levothyroxine 50 mcg daily. 14. Lisinopril 20 mg daily. 15. Magnesium oxide 400 mg twice a day. 16. Multivitamin one tablet twice a day. 17. Omeprazole 20 mg daily. 18. Paxil 10 mg daily. 19. Pravastatin 10 mg daily at bedtime. 20. Renvela 800 mg p.o. t.i.d. 21. Flomax 0.4 mg p.o. q.h.s. REVIEW OF SYSTEMS: GENERAL: Denies any new fatigue or weight loss. Denies fevers. EYES: No double vision or blurred vision. NOSE: No epistaxis or rhinorrhea. MOUTH: No gingival bleeding. THROAT: No sore throat, hoarseness, or cough. RESPIRATORY: Positive shortness of breath. CARDIOVASCULAR: Denies any chest pain or palpitations. GASTROINTESTINAL: Denies nausea, vomiting, or diarrhea. GENITOURINARY: Continues to make urine despite hemodialysis. MUSCULOSKELETAL: Denies any new arthralgias or myalgias. Does have a history of chronic back pain. IMMUNOLOGICAL: Denies any recent infections. HEMATOLOGICAL: Denies any bruising or bleeding. PSYCHIATRIC: History of depression. LABORATORY DATA: WBCs 8.4, hemoglobin 11.2, hematocrit 32.6, platelets are 140. Glucose 201, BUN 44, creatinine 8.1, sodium 135, potassium 5.2, chloride 96, CO2 is 25, calcium 7.6, and albumin 3.8. AST is 18, ALT is 19, alkaline phosphatase is 96. PATIENT'S NAME: LEONEL ALONSO [facility] AGE: 81 Y [address] ROOM: [id number], [place] [address] LOCATION: [facility] ADMIT DATE: 10/12/2016 Consultation DISCHARGE DATE: FAMILY PHYSICIAN: PHYSICIAN, UNKNOWN ATTENDING PHYSICIAN: DONALD CORONA V PHYSICAL EXAMINATION: VITAL SIGNS: Blood pressure 191/83, pulse 91, respirations 18, temperature 98.4, weight 109 kilos. GENERAL: On exam, this is an alert and oriented elderly male, who is in no acute distress. HEENT: His head is normocephalic and atraumatic. Eyes: Pupils are equal and react briskly to light and accommodation. EOMs intact. Nose: Midline. Mouth: No gingival bleeding. Throat without lymphadenopathy or carotid bruits. Unable to assess any JVD. LUNGS: Lung sounds are coarse bilaterally. Breaths are nonlabored. CARDIOVASCULAR: Irregular rate and rhythm. Unable to appreciate any murmurs, rubs, or thrills. ABDOMEN: Obese, bowel sounds positive. EXTREMITIES: Show trace to 1+ lower extremity edema bilaterally. SKIN: Warm and dry. NEUROLOGIC: Cranial nerves 2 through 12 are grossly intact. ASSESSMENT AND PLAN: 1. End-stage renal disease, on hemodialysis. We will obtain the patient's outpatient clinical record and provide hemodialysis accordingly. 2. Volume overload. The patient is due for his hemodialysis today. We will attempt aggressive ultrafiltration to help alleviate his volume overload. We will utilize albumin as well to mobilize fluid. We will ultrafiltrate as tolerated with his blood pressure. 3. Acute hypoxic respiratory failure due to volume overload. The patient was on BiPAP and is currently tolerating 3 L nasal cannula. We will continue to ultrafiltrate and ideally help to alleviate his shortness of breath. This patient has been seen and assessed by Dr. Morfin. His care is being conducted in consultation with Dr. Morfin as well as me. We will plan further recommendations as they are forthcoming. In the interim, the patient is to be initiated on hemodialysis. DILMA LING DNP, HYDROGEN POWER PLANT ENGINEER FOR MD AGNIESZKA DYER/graciel /[id number] d: 10/12/16 2316 t: 10/21/16 1356, CONSULTATION REPORT
--- NOTE | ~2016-10-12 | DS ---
PATIENT'S NAME: LEONEL ALONSO [facility] AGE: 81 Y [address] ROOM: [id number] [place], [place] [address] LOCATION: [facility] ADMIT DATE: 10/12/2016 Discharge Summary DISCHARGE DATE: 10/16/2016 FAMILY PHYSICIAN: Bernabe Montero MD ATTENDING PHYSICIAN: Mejia Clay V FINAL DIAGNOSES: 1. Acute hypoxic respiratory failure. 2. Acute systolic congestive heart failure. 3. Accelerated hypertension. 4. Diabetes mellitus type 2. 5. End-stage renal disease, on hemodialysis. 6. Chronic urinary retention. 7. Possible urinary tract infection. 8. Znuqxc-lk-bdouzpw disease. HISTORY OF PRESENT ILLNESS: Please see the history and physical dictated by Dr. Clay for details. In short, the patient presented with increased shortness of breath and was found to have acute hypoxic respiratory failure. LABORATORY DATA: On admission, pH 7.45, pCO2 40, pO2 71, 95% sat on 10 L. Sodium on admission was 135, discharge 134, potassium on admission was 5.2, discharge 4.6, CO2 on admission was 25, BUN on admission was 44, discharge 39, creatinine on admission was 8.1, discharge 5.6, total bilirubin on admission was 0.7, alk phos 96, AST 18, ALT 19, phosphorus was 3.3, and magnesium on the was 3. Cardiac enzymes on admission, his initial troponin was 0.05, his pro-BNP was 52,723, hemoglobin A1c 4.5. White blood cell count on admission was 8.4 with a hemoglobin of 11.2, hematocrit 32.6, MCV was 106.5, and platelet count 140, most prior to discharge, white blood cell count 7.3, hemoglobin 10.6, and hematocrit 31.2. Urinalysis done on the had a full- field of whites and full-field of reds. MICROBIOLOGY DATA: Urine culture grew Raoultella planticola. RADIOLOGY REPORTS: Chest x-ray on admission did show evidence of congestive heart failure, volume overload, vascular congestion, and a left pleural effusion. Chest x-ray taken on the did show that there had been some improvement. CARDIOVASCULAR DATA: Echocardiogram returned showing that he had an EF of 40%. He had left ventricular hypertrophy, diastolic dysfunction. HOSPITAL COURSE: The patient was admitted with a diagnosis of acute hypoxic respiratory failure. It was felt that he was volume overloaded. Decision was made to take him to dialysis on the morning of the . He did have fluid PATIENT'S NAME: LEONEL ALONSO [facility] AGE: 81 Y [address] ROOM: [id number] [address] LOCATION: [facility] ADMIT DATE: 10/12/2016 Discharge Summary DISCHARGE DATE: 10/16/2016 FAMILY PHYSICIAN: Bernabe Montero MD ATTENDING PHYSICIAN: Mejia Clay. He was feeling better and we were able to start weaning his oxygen. He does have type 2 diabetes and started on a NovoLog carb count. He was able to use the CPAP. We also placed him on a sliding scale. He did show improvement. We did dialyze him again on the . An echocardiogram had been obtained on admission. The echo came back showing that his EF had dropped. The decision was made that he needed a heart catheterization. His blood pressures stayed significantly high during this hospitalization. His Coreg dose was increased. Urine was obtained because of foul-smelling urine, it did return growing a bacteria, but it was not clear whether this was a true infection as the patient does self-catheterize. Hydralazine was added to help control his blood pressure. He had to be started on nitroglycerin drip and this was weaned off. His stress test returned showing that he had a fixed defect in the inferolateral wall. I did discuss this with Dr. Castle, the glass ribbon machine operator assistant, who had seen him in the clinic a year ago. It was felt that he might need to be considered for heart catheterization. The patient was anxious to go home and was actually feeling okay; so, the decision was made to have him follow up with Dr. Castle as an outpatient for possible heart catheterization. DISCHARGE INSTRUCTIONS: He is to go home on a diabetic diet. He is to continue his routine dialysis. He will see Dr. Castle on , October 22. MEDICATIONS: 1. Allopurinol 300 mg daily. 2. Amlodipine 10 mg daily. 3. PhosLo 667 mg twice daily. 4. Coreg 6.25 mg twice daily. 5. Cipro 250 twice a day and that will stop on October 18. 6. Colchicine 1 tablet on Mondays and Fridays. 7. Flonase 1 spray each nostril daily. 8. Apresoline 50 mg 3 times daily, which was new. 9. Imdur 60 mg daily. 10. Synthroid 50 mcg daily. 11. Prinivil 20 mg at bedtime. 12. Mag oxide 400 mg twice daily. 13. Prilosec 20 mg daily. 14. MiraLAX 17 g daily to keep his bowels regular. 15. Paxil 10 mg daily. 16. Pravastatin 10 mg daily. 17. Renvela 800 mg 3 times daily. 18. Flomax 0.4 mg at bedtime. 19. Tylenol 1000 mg every 6 hours as needed for pain or fever. 20. Glucotrol 10 mg daily. 21. Keisha 180 mg daily for allergies. 22. Advair 250/50 1 puff daily. PATIENT'S NAME: LEONEL ALONSO [facility] AGE: 81 Y [address] ROOM: [place] [address] LOCATION: [facility] ADMIT DATE: 10/12/2016 Discharge Summary DISCHARGE DATE: 10/16/2016 FAMILY PHYSICIAN: Bernabe Montero MD ATTENDING PHYSICIAN: Mejia Clay V 23. Ocuvite 1 tablet daily. PROGNOSIS: Overall, prognosis at discharge was fair. This was discussed with he and his daughter. I also discussed and updated Dr. Morfin. CHADD BALBUENA MD LAW/modl /[id number] CC: MD Camron Avila MD Lakshminarayan Yerra, MD [facility] Dialysis d: 10/17/16409 t: 10/21/164, DISCHARGE SUMMARY
--- NOTE | ~2016-10-12 | ESTC ---
Cardiac Perfusion Imaging Demographics Patient Name GAVIN Mcfadden Gender Male Patient Number [id number] Race Visit Number [id number] Ethnicity Corporate ID Room Number [id number] Accession Number [id number] Height 73 inches Date of 1935 Weight 249 pounds Interpreting Physician Crystal Sim Date of study 10/15/2016 MD Supervising MD/JESSIE NM Technologist Ordering Physician Stress photogrammetric technician Stress ECG Reading Nurse Physician Procedure Procedure Type: Nuclear Stress Test:Cardiolite Stress Test Procedure Start time: 10/15/2016 08:40 Risk Factors The patient risk factors include:treated hypercholesterolemia, treated hypertension and orally-treated diabetes mellitus. Conclusions Impression ECG portion of the stress test is clinically nondiagnostic for ischemia by diagnostic criteria. Myocardial perfusion imaging is moderately abnormal. The images reveal a mostly fixed defect in the basal to mid inferolateral wall consistent with infarct . Dilated LV with reduced LV systolic function. LV is dilated with LVEDV of 255 ml, calculated LVEF is 37% and TID ratio is 1.06. Clinical correlation recommended. Stress Protocols Predicted HR: 141 bpm Imaging Results Applied corrections - Motion correction applied High risk findings Summed scores - Summed stress score: 4 - Summed rest score: 7 - Summed difference score: -3 Stress ejection Ejection fraction:37 % EDV :255 ml ESV :161 ml Stroke volume :94 ml LV mass :224 gr Medical History Admission Data Admission date: 10/12/2016 Admission Time: 08:12 Hospital Status: Inpatient. Signatures dtt: TOM BARCENAS dtd: 10/15/16 0840 Physician Self Edit
--- NOTE | ~2016-10-12 | ER ---
PATIENT'S NAME: LEONEL ALONSO [facility] AGE: 81 Y [address] ROOM: [id number] [place], [place] [address] LOCATION: [facility] ADMIT DATE: 10/12/2016 ER/Outpatient Report DISCHARGE DATE: FAMILY PHYSICIAN: PHYSICIAN, UNKNOWN ATTENDING PHYSICIAN: DONALD CORONA V HISTORY OF PRESENT ILLNESS: This patient is a 81-year-old male who presented with shortness of breath and respiratory distress. Initially, he saw Dr. Carney. See Dr. Carney's dictation in regard to chief complaint, history of present illness, past medical history, physical exam, laboratory x-ray, study results. A few laboratory tests that were not completed at shift change. Dr. Carney transferred the patient's care to me at shift change. He asked me to follow up the patient's remaining laboratory studies results, final diagnoses, and treatment plan. The patient is on BiPAP. He has continuous nebulizer treatments. His arterial blood gases showed a pH of 7.45, pCO2 40, pO2 of 71 with an O2 saturation of 95%. White count was 8400, 89 segs, 6 lymphocytes, 3 monos, 1 eo. Hemoglobin is 11.2, hematocrit 32.6, platelet count is 140,000, lactate was 2.3. CMS was normal except for an elevated potassium of 5.2, elevated anion gap at 19.2, elevated glucose at 201, low calcium 7.6, elevated BUN of 44, elevated creatinine 8.1, low GFR of 6, CPK was 119, CK-MB was normal at 1, troponin was slightly elevated 0.053. EKG showed pacing rhythm. Chest x-ray showed cardiomegaly with congestive pattern. We will review x-ray with the radiologist. IMPRESSION: 1. Respiratory distress, history of asthma. 2. End-stage renal failure, on hemodialysis. The patient appears to be fluid overloaded. 3. Frd-uelljxv-whjxeezmd diabetes mellitus. 4. Hypothyroidism. 5. Thrombocytopenia. PLAN: Discussed the patient with Dr. Corona, hospitalist. Dr. Corona is coming to the emergency room to evaluate the patient and to admit the patient to the hospital. Will decide whether the patient goes to ICU, PCU, and whether he will have hemodialysis before admission to the hospital. MD RUSS TIRADO/katina PATIENT'S NAME: LEONEL ALONSO [facility] AGE: 81 Y [address] ROOM: [place] [address] LOCATION: [facility] ADMIT DATE: 10/12/2016 ER/Outpatient Report DISCHARGE DATE: FAMILY PHYSICIAN: PHYSICIAN, UNKNOWN ATTENDING PHYSICIAN: DONALD CORONA V /[id number] d: 10/12/161109 t: 10/13/16613, OUTPATIENT REPORT
--- NOTE | ~2016-10-12 | ER ---
PATIENT'S NAME: LEONEL ANGEL [facility] AGE: 81 Y [address] ROOM: [place] [address] LOCATION: [facility]ICU ADMIT DATE: 10/12/2016 ER/Outpatient Report DISCHARGE DATE: FAMILY PHYSICIAN: PHYSICIAN, UNKNOWN ATTENDING PHYSICIAN: DONALD CORONA V CHIEF COMPLAINT: Difficulty breathing. HISTORY OF PRESENT ILLNESS: Mr. Angel states that sometime in the middle of the night he began having difficulty breathing. The exact onset could not be ascertained. He is a dialysis patient and dialyzed this morning. He states he has no chest pain, but just cannot breathe. He states he has a pacemaker, but his heart is otherwise fine and he has asthma and needs dialysis. Review of his records reveal that he has extensive cardiac history. He denies any fevers, chills, nausea, vomiting, or cough prior to the onset of this episode. His inhalers do not seem to be helping him much. He called his daughter around 4 a.m. for help and that is when she came and got him and brought him in for evaluation. He states he has never been this bad and the daughter confirms it. He is requesting oxygen. PAST MEDICAL HISTORY: Documented on the record and reviewed by me. I did in fact review prior hospitalization records as well. SOCIAL HISTORY: Documented on the record and reviewed by me. I did in fact review prior hospitalization records as well. MEDICATIONS: Documented on the record and reviewed by me. I did in fact review prior hospitalization records as well. ALLERGIES: DOCUMENTED ON THE RECORD AND REVIEWED BY ME. I DID IN FACT REVIEW PRIOR HOSPITALIZATION RECORDS WELL. REVIEW OF SYSTEMS: All systems were reviewed and negative except as noted in the HPI. PHYSICAL EXAMINATION: VITAL SIGNS: Blood pressure on arrival was 219/116, pulse is 96, respiratory rate is 38, temperature is 96.1, and SpO2 is 88% on room air. GENERAL: Age-appropriate male, recumbent on exam table, in [id number] PATIENT'S NAME: LEONEL ANGEL [facility] AGE: 81 Y [address] ROOM: [place] [address] LOCATION: [facility] ADMIT DATE: 10/12/2016 ER/Outpatient Report DISCHARGE DATE: FAMILY PHYSICIAN: PHYSICIAN, UNKNOWN ATTENDING PHYSICIAN: DONALD CORONA V respiratory distress in no outward signs of pain. NEURO: The patient is awake and alert. GCS is 14. Opens eyes to command. He is able to stand, but is weak. He can manipulate himself on the bed with minimal difficulty. HEENT: Normocephalic, atraumatic. Eyes are PERRL. Slightly injected. Oropharynx is clear. NECK: Supple. No stridor. Trachea is midline. CHEST: Heart is borderline tachycardic. Paced rhythm on the monitor. No obvious murmurs. Lungs are with markedly diminished air entry bilateral and few wheezes. Very tight exam, slightly limited by body habitus. ABDOMEN: Obese, soft, nontender, and nondistended. No rebound or guarding. There does appear to be diastasis recti without evidence of hernia of bowel contents. EXTREMITIES: Warm. There is some edema in the lower extremities. SKIN: Appears to be grossly intact. Warm. Borderline diaphoretic. LABORATORY DATA AND X-RAYS: Chest x-ray with diffuse infiltrate per my review. EKG: Paced rhythm, irregularly irregular. Concern for atrial fibrillation on an atrial sensed ventricular paced rhythm though it is unclear, significantly different from prior EKGs. Labs available currently are sodium of 135, potassium of 5.2, chloride of 96, CO2 is 25, BUN 44, creatinine 8.1, GFR is 6. LFTs unremarkable. Cardiac labs not initially available. Pending labs include a lactate and cardiac enzymes. Blood cultures were drawn. IMPRESSION: 1. Severe respiratory distress. 2. Likely asthma versus chronic obstructive pulmonary disease. 3. Possible pneumonia. 4. Possible heart failure. 5. Possible acute heart attack. 6. Dialysis dependent renal failure. EMERGENCY DEPARTMENT COURSE: The patient was seen and evaluated as above. He was tachycardic and short of breath. However, with his pulmonary exam, reactive airway disease is felt to be much more likely. He was started with a DuoNeb and then placed on continuous Xopenex which did help markedly with his pulmonary exam. After a total of 10 Xopenex, he continued to have better aeration, but continued to wheeze and, in fact, had more tired appearance and increased work of breathing. Supplemental oxygen did improve his oxygenation well. His blood gas was obtained and he is not retaining CO2, but his oxygen levels are low despite significant supplemental O2. He has a chest x-ray that is concerning PATIENT'S NAME: LEONEL ANGEL [facility] AGE: 81 Y [address] ROOM: [id number] [place], [place] [address] LOCATION: [facility] ADMIT DATE: 10/12/2016 ER/Outpatient Report DISCHARGE DATE: FAMILY PHYSICIAN: PHYSICIAN, UNKNOWN ATTENDING PHYSICIAN: DONALD CORONA V for multiple possible processes, and given his current presentation, it is unclear. In any case, the patient was started on BiPAP and nitroglycerin. He was given Solu-Medrol and magnesium to treat his asthma. BiPAP was initiated to help reduce the work of breathing. The patient was feeling more comfortable at that time. I transitioned care to Dr. Plaza at 0600 hours with a plan to follow up his cardiac labs and admit for dialysis and severe respiratory distress and hypoxia that appears to be improving on BiPAP. CRITICAL CARE: Critical care time is warranted for hypoxia and respiratory distress. Critical care time is 47 minutes. Critical care is warranted on patient evaluation, record review, ordering and interpreting multiple labs, blood gas, EKG, and chest x-ray. I also ordered and reassessed response to breathing treatments continuously. I initiated anti-inflammatory treatment with prednisone as well as magnesium for severe asthma. I also initiated nitroglycerin for markedly elevated blood pressures. I do not think that his lungs are currently due to high blood pressure and thus cannot make the diagnosis of hypertensive emergency. The patient was doing better. He will need to be admitted to the hospital. Care was transitioned at 0600 hours. MD DIEGO DALY/katina /[id number] d: 10/12/160 t: 10/13/16 1303, OUTPATIENT REPORT
--- NOTE | ~2016-10-12 | ECHO ---
Transthoracic Echocardiography Report (TTE) Demographics Patient Name LEONEL ALONSO Date of Study 10/12/2016 Patient Number [id number] Visit Number [id number] Date of 1935 Room Number [id number] Gender Male Number Age 81 year(s) Referring Obed Ba V Commanding Officer Motorized Squad Garry Rachel RDCS, Physician RVT Physician Interpreting Paulo Zuniga Cook House Laborer Physician A Supervising Ordering Obed Espinoza MD/MLP Physician MD Nurse Stress Upholstery Cutter Conclusions Contractility Score Summary Summary Technically difficult exam due to patient body habitus and supine. The estimated left ventricular ejection fraction is 40%. Moderate concentric left ventricular hypertrophy. Diastolic assessment reveals Grade I diastolic dysfunction. The left ventricle is borderline dilated . Apical hypokinesis. Inferior hypokinesis. Septal hypokinesis Mildly dilated right ventricle. Device lead noted in the right ventricle. The left atrium is severely dilated by LA volume index measurement. The right atrium is moderately dilated. IVC measures 1.72 cm with inspiratory collapse. Procedure Type of Study TTE procedure:2D Echocardiogram. Procedure Date Date: 10/12/2016 Start: 03:12 PM Study Location: Inpatient Portable Technical Quality: Limited visualization due to body habitus. Indications:CHF. Appropriate Use Criteria: 9 Patient Status: Routine HR: 92 bpm BP: 189/89 mmHg M-Mode/2D Measurements LV Diastolic Dimension: 5.24 cm LV Systolic Dimension: 3.95 cm LV Septum Diastolic: 1.41 cm LV PW Diastolic: 1.43 cm Cardiac Output: 7.42 l/min LA Dimension: 4.2 cm LVOT: 2 cm LVOT VTI: 25.7 cm RV Base: 4.42 cm LV Stroke volume: 80.7 ml RV Length: 7.74 cm TAPSE: 2.81 cm TDI-S': 22.2 cm/s Doppler Measurements AV Peak Velocity: 1.93 m/s MV Peak E-Wave: 0.82 m/s AV Peak Gradient: 14.9 mmHg MV Peak A-Wave: 1.29 m/s AV Mean Gradient: 10 mmHg MV E/A Ratio: 0.63 LVOT Peak Velocity: 1.35 m/s MV P1/2t: 78 msec TR Gradient:25.81 mmHg PV Peak Velocity: 1.31 m/s Estimated RAP:5 mmHg PV Peak Gradient: 6.86 mmHg Estimated RVSP: 31 mmHg Estimated PASP: 30.81 mmHg E' Septal Velocity: 0.05 m/s A' Septal Velocity: 0.12 m/s E' Lateral Velocity: 0.06 m/s A' Lateral Velocity: 0.17 m/s Findings Left Ventricle Moderate concentric left ventricular hypertrophy. Diastolic assessment reveals Grade I diastolic dysfunction. The left ventricle is borderline dilated . Apical hypokinesis. Inferior hypokinesis. Septal hypokinesis Right Ventricle Mildly dilated right ventricle. Device lead noted in the right ventricle. Left Atrium The left atrium is severely dilated by LA volume index measurement. Right Atrium The right atrium is moderately dilated. IVC measures 1.72 cm with inspiratory collapse. Mitral Valve Trivial mitral regurgitation by color Doppler. Aortic Valve The aortic valve is mildly sclerotic. Tricuspid Valve Mild tricuspid regurgitation by color Doppler. Pulmonic Valve The pulmonic valve is not well visualized. Pericardial Effusion No evidence of pericardial effusion. Miscellaneous Visualized portions of the aortic root and ascending aorta appear normal in size. Pleural Effusion No evidence of pleural effusion. Signature dtt: Justin Bates dtd: 10/12/16 1512 Physician Self Edit
[~2016-10-12 04:29] MED LIST changes: +ADVAIR 250-501 EACH INH; +ADVIL200 MG PO; +AMPICILLIN TRI500 MG PO; +BACITRACIN1 PKT TOP; +FLONASE 50 MCG/16 GM NOSE; +OCUVITE EYE +1 EACH PO; +PHOSLO667 MG PO; +TYLENOL EXTRA500 MG PO
[2016-10-12 05:15] LABS: BASOPHIL % 0.4 %; EOSINOPHIL # 0.1 K/uL (0.0-0.5); EOSINOPHIL % 0.7 %; HEMATOCRIT 32.6 % (37.0-53.0); HEMOGLOBIN 11.2 g/dL (11.0-16.0); IMMATURE GRANULOCYTE % 0.2 %; LYMPHOCYTE # 0.5 K/uL (0.8-4.0); LYMPHOCYTE % 6.2 %; MCH 36.6 pg (27.0-34.0); MCHC 34.4 gm/dL (32.0-36.5); MCV 106.5 fl (83.0-98.0); MONOCYTE # 0.3 K/uL (0.0-1.0); MONOCYTE % 3.3 %; MPV 11.1 fl (9.4-12.4); NEUTROPHIL # (ANC) 7.5 K/uL (1.4-9.0); NEUTROPHIL % 89.2 %; NRBC % 0 /100WBC (0-0.00); PLATELET COUNT 140 K/uL (150-450); RBC 3.06 M/uL (3.50-5.50); RDW-CV 14.1 % (11.9-14.6); WBC 8.4 K/uL (4.0-11.0)
[2016-10-12 06:10] LABS: PCO2 40 mmHg (35-45)
[2016-10-12 06:11] LABS: PO2 71 mmHg (80-90)
[2016-10-12 07:09] LABS: CALCIUM 7.6 mg/dL (8.5-10.5); POTASSIUM 5.2 mMol/L (3.7-5.1)
[2016-10-12 07:10] LABS: ALBUMIN 3.8 gm/dL (3.5-5.0); ANION GAP 19.2 (10.0-19.0); CREATININE 8.1 mg/dL (0.6-1.3); TOTAL BILIRUBIN 0.7 mg/dL (0.0-1.5); TOTAL PROTEIN 7.3 g/dL (6.0-8.4)
[2016-10-12] MEDS ORDERED: FLOMAX0.4 MG PO (14:44)
[2016-10-12] MEDS ORDERED: AMOXICILLIN500 MG PO (14:45)
[2016-10-13 05:35] LABS: BASOPHIL % 0.1 %; HEMATOCRIT 29.8 % (37.0-53.0); HEMOGLOBIN 10.2 g/dL (11.0-16.0); IMMATURE GRANULOCYTE % 0.4 %; LYMPHOCYTE % 13.7 %; MCH 36.2 pg (27.0-34.0); MCHC 34.2 gm/dL (32.0-36.5); MCV 105.7 fl (83.0-98.0); MONOCYTE # 0.4 K/uL (0.0-1.0); MONOCYTE % 5.1 %; MPV 10.4 fl (9.4-12.4); NEUTROPHIL % 80.7 %; NRBC % 0 /100WBC (0-0.00); PLATELET COUNT 131 K/uL (150-450); RBC 2.82 M/uL (3.50-5.50); RDW-CV 13.7 % (11.9-14.6); WBC 7.4 K/uL (4.0-11.0)
[2016-10-13 05:48] LABS: ALBUMIN 3.8 gm/dL (3.5-5.0); ANION GAP 17.8 (10.0-19.0); CALCIUM 8.3 mg/dL (8.5-10.5); PHOSPHORUS 3.3 mg/dL (2.5-4.9); POTASSIUM 4.8 mMol/L (3.7-5.1)
[2016-10-13 15:06] LABS: BILIRUBIN URINE NEGATIVE (NEGATIVE); BLOOD URINE 250 /UL (NEGATIVE); COLOR URINE YELLOW (YELLOW); GLUCOSE URINE 50 mg/dL (NEGATIVE); KETONE URINE NEGATIVE (NEGATIVE); LEUKOCYTES URINE 500 /UL (NEGATIVE); NITRITE URINE NEGATIVE (NEGATIVE); PROTEIN URINE 500 mg/dL (NEGATIVE); SPEC GRAVITY URINE 1.015 (1.003-1.035); TURBIDITY URINE 3+ (CLEAR); UROBILINOGEN URINE NORMAL (NORMAL)
[2016-10-13 15:15] LABS: RBC URINE FULL FIELD #/HPF (NEGATIVE); WBC URINE FULL FIELD #/HPF (NEGATIVE)
[2016-10-13 15:25] LABS: BACTERIA URINE FEW (NEGATIVE)
[2016-10-14 05:44] LABS: BASOPHIL % 0.4 %; EOSINOPHIL # 0.1 K/uL (0.0-0.5); EOSINOPHIL % 1.1 %; HEMATOCRIT 31.2 % (37.0-53.0); HEMOGLOBIN 10.6 g/dL (11.0-16.0); IMMATURE GRANULOCYTE % 0.3 %; LYMPHOCYTE # 1.6 K/uL (0.8-4.0); LYMPHOCYTE % 21.6 %; MCH 36.1 pg (27.0-34.0); MCV 106.1 fl (83.0-98.0); MONOCYTE # 0.4 K/uL (0.0-1.0); MONOCYTE % 5.4 %; NEUTROPHIL # (ANC) 5.2 K/uL (1.4-9.0); NEUTROPHIL % 71.2 %; NRBC % 0 /100WBC (0-0.00); PLATELET COUNT 137 K/uL (150-450); RBC 2.94 M/uL (3.50-5.50); RDW-CV 14.1 % (11.9-14.6); WBC 7.3 K/uL (4.0-11.0)
[2016-10-14 05:56] LABS: ALBUMIN 3.7 gm/dL (3.5-5.0); ANION GAP 20.3 (10.0-19.0); CALCIUM 8.4 mg/dL (8.5-10.5); PHOSPHORUS 3.5 mg/dL (2.5-4.9); POTASSIUM 5.3 mMol/L (3.7-5.1)
[2016-10-14 05:57] LABS: CREATININE 7.8 mg/dL (0.6-1.3)
[2016-10-15 04:23] LABS: PHOSPHORUS 3.2 mg/dL (2.5-4.9)
[2016-10-15 04:24] LABS: ANION GAP 16.6 (10.0-19.0); CREATININE 5.6 mg/dL (0.6-1.3); POTASSIUM 4.6 mMol/L (3.7-5.1)
[2016-10-16] MEDS ORDERED: CIPRO250 MG PO (15:07)
[2016-10-16] MEDS ORDERED: APRESOLINE50 MG PO (15:09)
[2016-10-16] MEDS ORDERED: MIRALAX17 GM PO (15:13)
[2016-11-04] MEDS ORDERED: CPAP INH (08:41)
== END 2016-10-16 16:50 | disposition disaster alternative care site (69) | DRG 189 ==
LOC: GMED 04:29 → GICU 08:12 → GNTU 08:12 → GICU 08:12
PROVIDERS: Emergency Medicine; Internal Medicine; Nurse Practitioner Family; ADMIT Internal Medicine
PROC: B246ZZZ Ultrasonography of Right and Left Heart (ICD-10-PCS; principal; 2016-10-12)
DX: J96.01 Acute respiratory failure with hypoxia (principal); I50.21 Acute systolic (congestive) heart failure; N18.6 End stage renal disease; E11.22 Type 2 diabetes mellitus with diabetic chronic kidney disease; N39.0 Urinary tract infection, site not specified; I13.2 Hypertensive heart and chronic kidney disease with heart failure and with stage 5 chronic kidney disease, or end stage renal disease; E03.9 Hypothyroidism, unspecified; E78.5 Hyperlipidemia, unspecified; E87.70 Fluid overload, unspecified; G47.33 Obstructive sleep apnea (adult) (pediatric); D63.1 Anemia in chronic kidney disease; Z99.2 Dependence on renal dialysis; J45.909 Unspecified asthma, uncomplicated; M10.9 Gout, unspecified; N40.0 Benign prostatic hyperplasia without lower urinary tract symptoms; Z95.810 Presence of automatic (implantable) cardiac defibrillator
CPT/HCPCS: A9500; C1751; J0360; J1644; J1940; J2785; J2930; J3475; J7040; P9047

== ENCOUNTER 2016-10-20 19:37 | Emergency (ER) | payer MEDICARE, MEDICAID ==
--- NOTE | ~2016-10-20 | ER ---
PATIENT'S NAME: LEONEL ALONSO [facility] AGE: 81 Y [address] ROOM: [place] [address] LOCATION: ED ADMIT DATE: 10/20/2016 ER/Outpatient Report DISCHARGE DATE: 10/20/2016 FAMILY PHYSICIAN: Bernabe Montero MD ATTENDING PHYSICIAN: Mer Montoya Time Seen: 1945 hours. CHIEF COMPLAINT: This is a 81-year-old male with multiple medical problems. He is in with complaint of chest pressure and shortness of breath. HISTORY OF PRESENT ILLNESS: The patient reports that he had been not feeling well since his discharge from the hospital last week. He states that he has been having intermittent shortness of breath and has been feeling very anxious. He took a nap today, and when he woke up, he states he felt very anxious when he woke up and developed shortness of breath followed by an aching tightness in his upper chest. No associated nausea or diaphoresis. PAST MEDICAL HISTORY: Significant for hypertension; chronic renal failure, hemodialysis, he is scheduled for dialysis tomorrow. He also has a history of congestive heart failure and pri-npdzmkk-vnzxrqjdl diabetes. CURRENT MEDICATIONS: See list. Apresoline was recently added on his recent hospitalization. SOCIAL HISTORY: He is a nonsmoker. He drinks alcohol occasionally. PHYSICAL EXAMINATION: GENERAL: Alert, pleasant, and cooperative male, in no acute distress. VITAL SIGNS: Stable. SKIN: Warm and dry. Color is normal. HEAD, EARS, EYES, NOSE, AND THROAT: Revealed puffy eyelid edema. Pupils equal, round, and reactive to light. Extraocular movements intact. Ear, nose, and throat were clear. NECK: Supple. He had moderate jugular venous distention. HEART: Had a regular rate and rhythm without murmur. LUNGS: Clear. Breath sounds are equal. ABDOMEN: Soft extremities are normal. NEUROLOGIC: Normal. LABORATORY DATA AND X-RAYS: PATIENT'S NAME: LEONEL ALONSO [facility] AGE: 81 Y [address] ROOM: [place] [address] LOCATION: [facility] ADMIT DATE: 10/20/2016 ER/Outpatient Report DISCHARGE DATE: 10/20/2016 FAMILY PHYSICIAN: Bernabe Montero MD ATTENDING PHYSICIAN: Mer Montoya Chest x-ray had improved from recent chest x-ray. Cardiac enzymes were negative. BNP was elevated at 16,000. At admission, his BNP was 58,000. His weight today is one kilogram above his normal dry weight. The patient was observed in the emergency department. His symptoms gradually resolved. I discussed with the patient admission for observation overnight versus close followup tomorrow. He wants go home and follow up tomorrow at dialysis which I think is perfectly reasonable. ASSESSMENT: Compensated congestive heart failure. PLAN: Continue his current medications. Follow up with his regular doctor as scheduled. MER MONTOYA MD JDB/modl /[id number] d: 10/21/16 0542 t: 10/22/16 1754, OUTPATIENT REPORT
[~2016-10-20 19:37] MED LIST changes: +AMOXICILLIN500 MG PO; +APRESOLINE50 MG PO; +CIPRO250 MG PO; +FLOMAX0.4 MG PO; +MIRALAX17 GM PO
[2016-10-20 19:52] LABS: BASOPHIL % 0.4 %; EOSINOPHIL # 0.1 K/uL (0.0-0.5); EOSINOPHIL % 2.2 %; HEMATOCRIT 35.2 % (37.0-53.0); HEMOGLOBIN 11.8 g/dL (11.0-16.0); IMMATURE GRANULOCYTE % 0.5 %; LYMPHOCYTE # 0.9 K/uL (0.8-4.0); LYMPHOCYTE % 15.8 %; MCHC 33.5 gm/dL (32.0-36.5); MCV 107.3 fl (83.0-98.0); MONOCYTE # 0.4 K/uL (0.0-1.0); MONOCYTE % 7.6 %; MPV 9.9 fl (9.4-12.4); NEUTROPHIL # (ANC) 4.1 K/uL (1.4-9.0); NEUTROPHIL % 73.5 %; NRBC % 0 /100WBC (0-0.00); RBC 3.28 M/uL (3.50-5.50); RDW-CV 15.2 % (11.9-14.6); WBC 5.6 K/uL (4.0-11.0)
[2016-10-20 19:54] LABS: PLATELET COUNT 102 K/uL (150-450)
[2016-10-20 20:01] LABS: INR - (THERAPEUTIC) 1.08 (0.92-1.07); PROTIME 11.3 SECONDS (9.8-11.4); PTT 25 SECONDS (25-32)
[2016-10-20 20:10] LABS: ALBUMIN 3.9 gm/dL (3.5-5.0); ALK PHOS 109 IU/L (33-138); ALT 22 IU/L (12-78); ANION GAP 17.4 (10.0-19.0); AST 21 IU/L (10-40); BLOOD UREA NITROGEN 45 mg/dL (6-24); CHLORIDE 99 mMol/L (96-110); CO2 25 mMol/L (22-32); CPK 82 IU/L (35-332); POTASSIUM 4.4 mMol/L (3.7-5.1); SODIUM 137 mMol/L (135-145); TOTAL BILIRUBIN 0.6 mg/dL (0.0-1.5); TOTAL PROTEIN 7.5 g/dL (6.0-8.4)
[2016-10-20 20:13] LABS: CREATININE 7.5 mg/dL (0.6-1.3); MAGNESIUM 2.9 mg/dL (1.8-2.6)
[2016-11-04] MEDS ORDERED: CPAP INH (08:41)
== END 2016-10-20 22:14 | disposition disaster alternative care site (69) ==
LOC: GMED 19:37
PROVIDERS: Emergency Medicine
DX: I13.0 Hypertensive heart and chronic kidney disease with heart failure and stage 1 through stage 4 chronic kidney disease, or unspecified chronic kidney disease (principal); E11.22 Type 2 diabetes mellitus with diabetic chronic kidney disease; I50.9 Heart failure, unspecified; N18.9 Chronic kidney disease, unspecified; Z99.2 Dependence on renal dialysis; Z79.2 Long term (current) use of antibiotics; Z79.84 Long term (current) use of oral hypoglycemic drugs; Z79.52 Long term (current) use of systemic steroids; Z79.899 Other long term (current) drug therapy
CPT/HCPCS: A9270

== ENCOUNTER 2016-11-11 07:21 | Outpatient (CLI) | payer MEDICARE, MEDICAID ==
[~2016-11-11] VITALS: Ht 182.9 cm; Wt 106.5 kg
--- NOTE | ~2016-11-11 | CATH ---
Cardiac Diagnostic Report Demographics Patient Name GAVIN Mcfadden Gender Male Date of 1935 Age 81 year(s) Patient Number [id number] Date of Study 11/11/2016 Visit Number [id number] Room Number G6399 [place] [id number] Ht 182.88 cm Wt 106 kg Referring [facility] Primary Physician Physician Charline Performing [facility] Secondary Physician Physician Charline Diagnostic Yerra Assisting Physician Physician Charline Interventional Physician Template Storage Clerk Physician Findings and Conclusions Diagnostic Findings and Conclusion Right dominant RCA: No significant epicardial disease L Main: No significant epicardial disease LAD: No significant epicardial disease L Cx: No significant epicardial disease Ramus: No significant epicardial disease AO 136/69 (98) RA 12/11 (9) RV 42/2/(8) PCWP 14/13(11) FA sat: 91.2% PA sat: 70.5% CO: 7.71 L Diagnostic Recommendations Medical treatment Procedure Description The patient was brought to the diagnostic cardiac catheterization-EP laboratory in the fasting, non-sedated state. Informed consent was obtained in the written and verbal form after the risks and benefits were explained. The patient had no further questions and agreed to proceed. The planned puncture-incision site(s) were shaved and prepped with ChloraPrep and draped in the usual sterile manner. Conscious sedation, supplemental oxygen, and pain control medications were delivered by a registered nurse under physician guidance. Surface ECG rhythm, blood pressure measurement, and pulse oximetry were monitored throughout the procedure. Venous access. The access site on right elbow was infiltrated with 2% lidocaine. The vessel was entered with the Seldinger technique. A sheath was advanced into the vessel and used for catheter placement. Arterial access. The access site on right wrist was infiltrated with lidocaine. The vessel was entered with the Seldinger technique. A sheath was advanced into the vessel and used for catheter placement. Right heart catheterization. A [place] Dre catheter was successfully advanced to the right atrium, right ventricle, pulmonary artery, and pulmonary artery wedge position under fluoroscopic guidance. Resting hemodynamics were obtained. Measurements included pressures, arterial and venous oxygen saturation samples, and cardiac output. The [place] was removed without difficulty. Selective right coronary angiography. A catheter was advanced into the right coronary vessel ostium under fluoroscopic guidance. Contrast was injected by hand. Images were obtained in multiple projections. Selective left coronary angiography. A catheter was advanced into the left coronary vessel ostium under Fluoroscopic guidance. Contrast was injected by hand. Images were obtained in multiple projections. Arterial and Venous hemostasis was achieved. The patient was transferred to a regular nursing floor via cart accompanied by a nurse. The patient left the laboratory in stable condition. Diagnostic Cath Status: Urgent Procedure Procedure Type Diagnostic procedure:Angiography:, RHC w/Coronary Angio Indications: Hypertension, CHF and Surgical clearance. The procedure was explained in detail to the patient. Risks, complications and alternative treatments were reviewed. Written consent was obtained. Medications Reviewed with Patient prior to Procedure. Angiographic Findings Dominance: Right Cardiac Arteries and Lesion Findings LMCA: Normal (0% Stenosis). LAD: Normal (0% Stenosis). LCx: Normal (0% Stenosis). RCA: Normal (0% Stenosis). Procedure Data Procedure Date Date: 11/11/2016Start: 10:36 AMEnd: 11:30 AM Entry Locations - Antegrade Percutaneous access was performed through the Right Antecubital. A 7 Fr sheath was inserted. - Retrograde Percutaneous access was performed through the Right Radial artery (Primary location). A 6 Fr sheath was inserted. Hemostasis was successfully obtained using Mechanical Compression. Closure Comments: 15 cc air in band by Daren Acevedo Procedure Medications Order and Administration + + + + + !Time !Medication !Dosage !Route ! + + + + + !11/11/2016 10:37 AM !Versed !1 mg !I.V. ! + + + + + !11/11/2016 10:37 AM !Fentanyl !50 mcg !I.V. ! + + + + + !11/11/2016 10:56 AM !Heparin (ACC_3) !4500 units !I.V. bolus ! + + + + + Devices Used - A6 Fr. Balloon Wedge Catheterwas used for:Right heart cath. - A5 Fr. BS JR 4 Diag. Catheterwas used for:Right coronary angiography. - A5 Fr. BS JL 3.5 Diag. Catheterwas used for:Left coronary angiography. Contrast Material - Isovue 96978 ml Fluoroscopy Time: Diagnostic: 9:42 minutes. Total: 9:42 minutes. Fluoroscopy Dose: Diagnostic: 1452 mGy. Total: 1452 mGy. Estimated Blood Loss: 15 ml. Medical History Allergies - No known allergies. Risk Factors The patient risk factors include:hypertension, family history of premature CAD, untreated diabetes mellitus, chronic lung disease, last creatinine: 7.8 mg/dl, creatinine clearance: 11.51 ml/min, dyslipidemia, currently treated with dialysis and prior heart failure . Admission Data Admission Date: 11/11/2016 Admission Time: 07:21 AM Admit Source: Other Insurance Payors: Medicare. Admission Medications + +------+------+ + + + + !Medication !Dosage!Times !Last !Last !Administered !Comments ! ! ! !Per !Delivery !Delivery ! ! ! ! ! !Day !Date !Time ! ! ! + +------+------+ + + + + !ALFONSO ! ! ! ! !Yes ! ! !Inhibitor ! ! ! ! ! ! ! !(any) ! ! ! ! ! ! ! + +------+------+ + + + + !Statin (any)! ! ! ! !Yes ! ! + +------+------+ + + + + Clinical Evaluation Leading to Procedure Diagnosed on 11/11/2016 08:00 AM. 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 Hemodynamics Condition: Rest O2 Consumption: Estimated: 262.70Heart Rate: 72 bpm Oxygen Saturation +--------+-----+----+ +----+ + !Location!pCO2 !pO2 !% Saturation !Hgb !O2 Content ! +--------+-----+----+ +----+ + !PA ! ! !70.5 !12.1! ! +--------+-----+----+ +----+ + !AO ! ! !91.2 !12.1! ! +--------+-----+----+ +----+ + Pressures (mmHg) +-----+ + !Site !Pressure ! +-----+ + !RA !12/05 (6) ! +-----+ + !PCW ! (13) ! +-----+ + !PCW ! (11) ! +-----+ + !PCW ! () ! +-----+ + !PA !39/15 (24) ! +-----+ + !RV !42/2 ,8 ! +-----+ + !RV !13/3 ,4 ! +-----+ + !RA !9/8 (6) ! +-----+ + !RA !03/08 (9) ! +-----+ + !AO !136/69 (98) ! +-----+ + Cardiac Output +------+ + + + !Method!CO (l/min) !CI (l/min/m2) !SV (ml) ! +------+ + + + !Rubén !7.71 !3.4 !106.66 ! +------+ + + + Shunts Oxygen Values O2 Capacity 164.56 O2 Consumption 262.7 Flows (l/min) Qs 7.71 Qe/Qp 1 Qp 7.71 Qp/Qs 1 Qe 7.71 Vascular Resistance (dynes x sec x cm-5) + +-----+-----+----+----+---------+-------+ !CO method !TSVR !SVR !TPVR!PVR !TPVR/TSVR!PVR/SVR! + +-----+-----+----+----+---------+-------+ !Rubén !12.74!11.53!3.15!1.76!0.25 !0.15 ! + +-----+-----+----+----+---------+-------+ !Qp or Qs !12.74!11.53!3.15!1.76!0.25 !0.15 ! + +-----+-----+----+----+---------+-------+ Discharge Data Discharge Date: 11/11/2016 Hospital Status: Outpatient Signatures dtt: CHARLINE HOBSON dtd: 11/11/16 1036 Physician Self Edit
--- NOTE | ~2016-11-11 | CON ---
PATIENT'S NAME: LEONEL ALONSO [facility] AGE: 81 Y [address] ROOM: [address] [place], [place] [address] LOCATION: GPCU ADMIT DATE: 11/11/2016 Consultation DISCHARGE DATE: FAMILY PHYSICIAN: Bernabe Montero MD ATTENDING PHYSICIAN: CHARLINE HOBSON DATE OF CONSULTATION: 11/11/2016 REFERRING PHYSICIAN: Charline Hobson MD REASON FOR CONSULTATION: End-stage renal disease, on dialysis. 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 Post catheterization, the patient needs dialysis as per his outpatient dialysis schedule. The patient is seen and examined on dialysis, tolerating HD well, no new complaints. The patient has a recent hospital admission with significant shortness of breath and fluid overload despite being wound despite getting regular hemodialysis and on aggressive ultrafiltrate. His EF has dropped significantly in the recent echo compared to the last one to rule out any significant ischemic insult. The patient planned to have a left and right heart catheterization today; however, as per the verbal report from Dr. Hobson, there was no significant coronary disease on cardiac cath, but he was found to have some degree of pulmonary hypertension, but however, he did not mention any specific number of pulmonary artery systolic pressure to me. During my evaluation today on dialysis, the patient is doing well without any significant chest pain, shortness of breath, nausea, vomiting, diarrhea. Blood pressure is still above the acceptable range and we are trying to at least take 2-3 L of ultrafiltrate on dialysis as per the hemodynamics. PAST MEDICAL HISTORY: 1. End-stage renal disease, on hemodialysis. 2. Type 2 diabetes, with diabetic nephropathy. 3. Hypertension with hypertensive nephrosclerosis. 4. Acute renal failure. 5. Chronic back pain. 6. History of dyslipidemia. 7. Gout. 8. History of BPH. 9. Sick sinus syndrome, status post AICD implantation in 2010. PAST SURGICAL HISTORY: 1. AICD implantation. 2. Cholecystectomy. 3. AV fistula placement. SOCIAL HISTORY: Lives at home. Former smoker. Does not smoke. Currently, he denies any illicit drug use or alcohol use. FAMILY HISTORY: No history of renal disease or dialysis in the family. CURRENT MEDICATIONS: As per the chart.PATIENT'S NAME: LEONEL ALONSO [facility] AGE: 81 Y [address] ROOM: [address] [place], [place] [address] [facility] ADMIT DATE: 11/11/2016 Consultation DISCHARGE DATE: FAMILY PHYSICIAN: Bernabe Montero MD ATTENDING PHYSICIAN: CHARLINE HOBSON REVIEW OF SYSTEMS: GENERAL: No fever. No chills or rigor. HEENT: No sore throat. No sinus congestion. CVS: No chest pain. No exertional shortness of breath. No leg swelling. RESPIRATORY: No shortness of breath. No cough. No wheezing. GENITOURINARY: No pain with urination. No increased frequency. No nocturia. GASTROINTESTINAL: No abdominal pain. No abdominal distention. No nausea or vomiting. NEUROLOGIC: No weakness. No seizures. SKIN: No rash. No itching. ALLERGIES: No seasonal allergy. No hayfever. ENDOCRINE: No heat intolerance. No cold intolerance. PSYCHIATRIC: No sadness. No crying spells. No history of panic attack. LABORATORY EVALUATION: Hemoglobin 12.1, WBC count 4.8, platelet 109. Chemistry: Serum sodium 136, potassium 4.9, bicarb 26, BUN 34, creatinine 7.8, glucose 134,calcium 8.8. PHYSICAL EXAMINATION: VITAL SIGNS: Blood pressure 141/80, pulse 70, respiratory rate 18, afebrile, saturating 96-98% on room air. GENERAL: Not in apparent distress. HEAD: Moist mucous membranes. Bilateral PERRLA, EOMI. NECK: No JVD, thyromegaly or lymphadenopathy. CVS: S1 and S2 normal, regular rate and rhythm. No murmur, rub, gallop. CHEST: Bilateral air entry equal. No wheeze or rales. ABDOMEN: Soft, nontender, nondistended. Bowel sounds present. EXTREMITIES: No cyanosis, clubbing, jaundice. No dependent edema. MUSCULOSKELETAL: No limitation of range of motion. SKIN: No pallor, cyanosis, icterus. MANAGER ICU: Alert and oriented x3. No gross findings. ASSESSMENT/PLAN: 1. 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 The patient is getting dialysis on 2K bath for 4 hours via a left forearm AV fistula and we will lie him for 2-3 L of ultrafiltrate as per the hemodynamics. 2. Hypertensive urgency. Blood pressure is above the acceptable range. After procedure now is improving with aggressive ultrafiltrate. We will continue to ultrafiltrate him as per hemodynamics. 3. Drop in EF, had left and right heart catheterization today. Coronaries appear to be normal but has significant pulmonary hypertension. The patient will follow up with Pulmonary and Cardiology team. 4. Pulmonary hypertension. Management as per Cardiology. Thank you for allowing me to participate in this patient's care. We will closely monitor the patient's progress along with you. ELIAS PRIETO MD /modl /[id number] d: 11/11/16 1743 t: 11/17/16 1129, CONSULTATION REPORT
[~2016-11-11 07:21] MED LIST changes: +CPAP INH
[2016-11-11 08:10] LABS: BASOPHIL % 0.4 %; EOSINOPHIL # 0.1 K/uL (0.0-0.5); EOSINOPHIL % 2.3 %; HEMATOCRIT 35.8 % (37.0-53.0); HEMOGLOBIN 12.1 g/dL (11.0-16.0); IMMATURE GRANULOCYTE % 0.4 %; LYMPHOCYTE # 1.2 K/uL (0.8-4.0); LYMPHOCYTE % 24.7 %; MCH 34.7 pg (27.0-34.0); MCHC 33.8 gm/dL (32.0-36.5); MCV 102.6 fl (83.0-98.0); MONOCYTE # 0.3 K/uL (0.0-1.0); MONOCYTE % 5.4 %; MPV 10.1 fl (9.4-12.4); NEUTROPHIL # (ANC) 3.2 K/uL (1.4-9.0); NEUTROPHIL % 66.8 %; NRBC % 0 /100WBC (0-0.00); PLATELET COUNT 109 K/uL (150-450); RBC 3.49 M/uL (3.50-5.50); RDW-CV 13.9 % (11.9-14.6); WBC 4.8 K/uL (4.0-11.0)
[2016-11-11 08:19] LABS: INR - (THERAPEUTIC) 1.08 (0.92-1.07); PROTIME 11.3 SECONDS (9.8-11.4); PTT 25 SECONDS (25-32)
[2016-11-11 08:25] LABS: ALBUMIN 3.8 gm/dL (3.5-5.0); ANION GAP 16.9 (10.0-19.0); CALCIUM 8.8 mg/dL (8.5-10.5); POTASSIUM 4.9 mMol/L (3.7-5.1); TOTAL BILIRUBIN 0.5 mg/dL (0.0-1.5); TOTAL PROTEIN 7.1 g/dL (6.0-8.4)
[2016-11-11] MEDS ORDERED: TYLENOL PM EX-1 EACH PO (08:27)
[2016-11-11 08:30] LABS: CREATININE 7.8 mg/dL (0.6-1.3)
== END 2016-11-11 19:10 | disposition disaster alternative care site (69) ==
LOC: GCAT 07:21 → GPCU 07:21 → GCAT 19:10
PROVIDERS: Internal Medicine Interventional Cardiology
PROC: 4A023N6 Measurement of Cardiac Sampling and Pressure, Right Heart, Percutaneous Approach (ICD-10-PCS; principal; 2016-11-11)
PROC: B216YZZ Fluoroscopy of Right and Left Heart using Other Contrast (ICD-10-PCS; 2016-11-11)
DX: Z01.810 Encounter for preprocedural cardiovascular examination (principal); I50.9 Heart failure, unspecified; I10 Essential (primary) hypertension; E11.9 Type 2 diabetes mellitus without complications; J98.4 Other disorders of lung; E78.5 Hyperlipidemia, unspecified; Z82.49 Family history of ischemic heart disease and other diseases of the circulatory system; R94.31 Abnormal electrocardiogram [ECG] [EKG]; Z95.0 Presence of cardiac pacemaker
CPT/HCPCS: C1894; J1644; J2001; J2250; J3010; J7030

== ENCOUNTER → 2016-11-19 | Outpatient (CLI) | payer MEDICARE, MEDICAID ==
[~2016-11-19] MED LIST changes: +TYLENOL PM EX-1 EACH PO
[2016-11-19 13:29] LABS: ANION GAP 14.8 (10.0-19.0); POTASSIUM 4.8 mMol/L (3.7-5.1)
[2016-11-19 13:30] LABS: CREATININE 6.1 mg/dL (0.6-1.3)
== END ==
LOC: LNHI 13:16
PROVIDERS: Internal Medicine Interventional Cardiology
DX: I42.9 Cardiomyopathy, unspecified (principal); I10 Essential (primary) hypertension; N18.9 Chronic kidney disease, unspecified